=== PATIENT | female | born 1980 | race Caucasian/White ===

== ENCOUNTER → 2016-07-16 | Outpatient (CLI) | payer MEDICARE, OTHER ==
--- NOTE | 2016-07-17 06:47 | MM ---
Reason for exam: clinical finding. Last mammogram was performed 3 years and 1 month ago. History: Family history of breast cancer in mother at age 69. Taking hormonal contraceptives beginning at age 34. Physical Findings: Nurse did not find any significant physical abnormalities on exam. MG 3D Diag Mammo W/Cad ALEENA Bilateral CC and MLO view(s) were taken. XCCL view(s) were taken of the right breast. Prior study comparison: June 23, 2013, bilateral digital screening mammo w/CAD. The breast tissue is heterogeneously dense. This may lower the sensitivity of mammography. There is no discrete abnormality. These results were verbally communicated with the patient and result sheet given to the patient on 07/16/16. ASSESSMENT: Negative, BI-RAD 1 RECOMMENDATION: Routine screening mammogram of both breasts at age 38. Manage on a clinical basis with regard to rash and pain.
== END | disposition home or self-care (01) ==
LOC: RADMAMWWP 14:58
PROVIDERS: ATTEND Family Medicine
DX: N62 Hypertrophy of breast (principal)
CPT/HCPCS: G0204; G0279

== ENCOUNTER → 2017-02-01 | Outpatient (CLI) | payer MEDICARE ==
--- NOTE | 2017-02-01 13:07 | CT ---
EXAMINATION TYPE: CT abdomen wo con DATE OF EXAM: 02/01/2017 COMPARISON: Prior CT 10/03/2015 HISTORY: Patient complains of epigastric pain. CT DLP: 218.4 mGycm Automated exposure control for dose reduction was used. TECHNIQUE: Helical acquisition of images was performed from the lung bases through the top of iliac crest to include entire abdomen. CONTRAST: Performed without Oral Contrast and without IV contrast. FINDINGS: Lack of intravenous contrast could compromise sensitivity. LUNG BASES: No significant abnormality is appreciated. LIVER/GB: No significant abnormality is appreciated. Patient is post cholecystectomy. PANCREAS: No significant abnormality is seen. SPLEEN: No significant abnormality is seen. ADRENALS: No significant abnormality is seen. KIDNEYS: No significant abnormality is seen. BOWEL: No significant abnormality is seen. LYMPH NODES: No significant abnormality is appreciated. OSSEOUS STRUCTURES: No significant abnormality is seen. FREE AIR: No Free [place] visible ASCITES: None visible. RETROPERITONEAL ADENOPATHY: No Retroperitoneal Adenopathy visible. OTHER: Minimal atheromatous change within the aorta. IMPRESSION: POSTOP CHANGES. NONCONTRAST EXAM.
== END | disposition home or self-care (01) ==
LOC: RADCTMAIN 11:44
PROVIDERS: ATTEND Family Medicine
DX: R10.84 Generalized abdominal pain (principal)
CPT/HCPCS: 74150

== ENCOUNTER → 2017-10-14 | Outpatient (CLI) | payer MEDICARE ==
--- NOTE | 2017-10-14 13:39 | XR ---
EXAMINATION TYPE: XR cervical spine comp DATE OF EXAM: 10/14/2017 COMPARISON: CT scan 08/31/1951 HISTORY: Hip pain and neck pain TECHNIQUE: Four views are submitted. FINDINGS: The odontoid is intact. There are no compression deformities. The prevertebral soft tissue structur es are within normal limits. Loss of the normal cervical lordosis. There is posterior spondylosis at C5-6 and C6-C7 with degenerative disc disease at levels C5-T1. 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 Suspected f oraminal encroachment at C5-C6 on the right. IMPRESSION: 1. Multilevel degenerative disc disease and facet arthropathy..
--- NOTE | 2017-10-14 13:43 | XR ---
EXAMINATION TYPE: XR Hip Bilateral Complete DATE OF EXAM: 10/14/2017 COMPARISON: 12/19/2015 HISTORY: Pain TECHNIQUE: 2 views submitted FINDINGS: There is no evidence of erosive change or acute fracture. There is a calcification or ossification along the lateral margin the acetabulum likely related to ch ronic acetabular labral tear on the right or a tiny os acetabuli. Nonspherical morphology to the bilateral femoral head can be associated with femoral acetabular impin gement. Additionally is focal areas of sclerosis involving the diaphysis of the proximal femur likely on the basis of benign etiology and stable dating back to the previous exam. IMPRESSION: 1. 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 2. Correlate for femoral acetabular impingement bilaterally.
== END | disposition home or self-care (01) ==
LOC: RADXRMAIN 12:17
PROVIDERS: ATTEND Family Medicine
DX: M50.33 Other cervical disc degeneration, cervicothoracic region (principal); M46.92 Unspecified inflammatory spondylopathy, cervical region; M16.0 Bilateral primary osteoarthritis of hip
CPT/HCPCS: 72050; 73521

== ENCOUNTER → 2018-11-04 | Outpatient (CLI) | payer MEDICARE, OTHER ==
--- NOTE | 2018-11-05 18:41 | MR ---
EXAMINATION TYPE: MR knee LT wo con DATE OF EXAM: 11/04/2018 COMPARISON: 09/17/2015 HISTORY: Left knee pain TECHNIQUE: Multiplanar, multisequence imaging of the left knee is performed without IV contrast. FINDINGS: MEDIAL MENISCUS: Anterior and posterior horns medial meniscus appear intact. LATERAL MENISCUS: There is diffuse increased signal within the anterior horn lateral meniscus suggest concepcion for internal derangement. This is stable from the comparison. Posterior horn medial meniscus wanda ins intact. CRUCIATE LIGAMENTS: The anterior and posterior cruciate ligaments are intact and unremarkable. COLLATERAL LIGAMENTS: The medial collateral ligament and lateral collateral ligament complex are inta ct and unremarkable. EXTENSOR MECHANISM: Visualized quadriceps and patellar tendons are intact. EFFUSION: There is a small to moderate joint effusion present which is similar to comparison POPLITEAL CYST: No popliteal/hirsch cyst. TRICOMPARTMENT SPACES: Preserved CARTILAGE: Articular cartilage abnormality identified along the superior medial aspect of the tibial plateau was present previously. Articular cartilage appears intact. No suspicious underlying fracture s or dislocations are evident. BONE MARROW SIGNAL: No focal abnormal marrow signal is appreciated. OTHER: No additional significant abnormality is appreciated. IMPRESSION: Internal derangement appears stable within the anterior horn lateral meniscus. 2. Mild articular cartilage abnormality along the tibial plateau lateral compartment is stable from c omparison. 3. Small to moderate joint effusion stable in size from comparison. 4. No significant interval changes.
== END | disposition home or self-care (01) ==
LOC: RADMRIMAIN 11:26
PROVIDERS: ATTEND Orthopaedic Surgery
DX: M25.462 Effusion, left knee (principal)

== ENCOUNTER → 2018-11-17 | Outpatient (CLI) | payer MEDICARE, OTHER ==
[2018-11-17 13:31] LABS: Appearance,Urine Clear (Clear); Bilirubin,Urine Negative (Negative); Blood,Urine Moderate (Negative); Color,Urine Yellow; Glucose,Urine (UA) Negative (Negative); Ketones,Urine Negative (Negative); Leukocyte Esterase,Urine Negative (Negative); Mucus,Urine Moderate /hpf; Nitrite,Urine Negative (Negative); PH, Urine 5.5 (5.0-8.0); Protein,Urine Trace (Negative); RBC,Urine 1 /hpf (0-5); Specific Gravity,Urine 1.025 (1.001-1.035); Squamous Epithelial Cell,Urine 5 /hpf (0-4); Urobilinogen,Urine <2.0 mg/dL (<2.0); WBC,Urine 4 /hpf (0-5)
[2018-11-17 17:58] LABS: C Reactive Protein 0.9 mg/dL (0.0-0.8); Uric Acid 4.6 mg/dL (2.9-7.7)
[2018-11-17 18:05] LABS: Rheumatoid Factor <4 IU/mL (0-15)
[2018-11-17 19:11] LABS: Cyclic Citrull Pep IgG Unit 0.9 U/mL; Cyclic Citrullinated Pep IgG NEGATIVE (NEGATIVE); DNA Double-Stranded NEGATIVE (NEGATIVE)
[2018-11-18 14:27] LABS: APTT 45 Sec(s) (<43); APTT 1:1 Mix 39 Sec(s) (<43); DRVVT 1:1 Mix 42 Sec(s) (<44); Dilute Russell Viper Venom 52 Sec(s) (<44)
== END | disposition home or self-care (01) ==
LOC: LABWHC1 12:11
PROVIDERS: ATTEND Family Medicine
DX: N39.0 Urinary tract infection, site not specified (principal); Z79.899 Other long term (current) drug therapy
CPT/HCPCS: 36415; 81001; 84550; 85613; 85730; 86038; 86140; 86200; 86225; 86431; 87086

== ENCOUNTER → 2019-01-06 | Outpatient (CLI) | payer MEDICARE, OTHER ==
--- NOTE | 2019-01-06 17:50 | MR ---
EXAMINATION TYPE: MR angio head wo con DATE OF EXAM: 01/06/2019 COMPARISON: NONE HISTORY: Chronic headaches TECHNIQUE: Time of flight images focusing on the [place] were performed without contrast.. 2-D and 3-D postprocessing imaging is performed on independent workstation and reviewed. FINDINGS: Slightly larger or dominant left vertebral artery. Vertebral arteries are patent to basilar junction. There are patent bilateral posterior communicating arteries. There is no significant focal stenosis or aneurysmal change in the posterior circulation. Images of the anterior circulation show patent anterior communicating artery which continues as there are anterior cerebral artery, unusual variant. No aneurysmal change. No significant stenosis. IMPRESSION: No aneurysmal change at the level of the [place].
--- NOTE | 2019-01-06 17:52 | MR ---
EXAMINATION TYPE: MR brain wo con DATE OF EXAM: 01/06/2019 COMPARISON: Prior MRI brain December 01, 2012. HISTORY: Headaches TECHNIQUE: Multiplanar, multisequence imaging of the brain and brainstem is performed without IV cont rast. FINDINGS: Diffusion weighted images demonstrate no evidence of a recent infarct or other diffusion abnormality. There is no extraaxial fluid collection or significant white matter signal abnormality. The ventricu lar system and cisternal spaces are normal in size and appearance. The brain volume is age appropria te. Midline structures demonstrate normal morphology. The craniocervical junction appears within normal limits. Normal vascular flow voids are present. The visualized sinuses are clear and the globes are i ntact. Nasal septum remains deviated to left of midline. IMPRESSION: No suspicious new or acute findings are seen.
== END | disposition home or self-care (01) ==
LOC: RADMRIMAIN 09:35
PROVIDERS: ATTEND Family Medicine
DX: G44.89 Other headache syndrome (principal)
CPT/HCPCS: 70544; 70551

== ENCOUNTER → 2019-01-10 | Outpatient (CLI) | payer MEDICARE, OTHER ==
[2019-01-10 10:47] VITALS: BP 113/79; PULSE 66; RESP 16; TEMP 98.5; BMI 31.0
--- NOTE | 2019-01-10 12:04 | P.HPOB ---
History of Present Illness H&P Date: 01/10/19 Chief Complaint: The patient is here for her routine gynecologic exam and for Depo-Provera This is a 38-year-old with an LMP of approximately 2013. The patient is here to establish with this office. She believes her last Pap smear was 2 years ago. She has been on Depo-Provera since about 2013. She was put on this because of endometriosis and bad menstrual periods. Her last Depo-Provera injection was on 09/30/2018. She has brought in her Depo-Provera for injection. She states she is no longer interested in ever getting and would like to look into tubal sterilization. She has been experiencing some right pelvic discomfort that she describes as an achy feeling that resembles her symptoms from endometriosis. Review of Systems The patient's weight has been stable over the last year. She denies respiratory, cardiac, or G.I. problems. Past Medical History Past Medical History: Fibromyalgia, Rheumatoid Arthritis (RA) Additional Past Medical History / Comment(s): Degenerative disc disease. 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 History of Any Multi-Drug Resistant Organisms: None Reported Past Surgical History: Section, Cholecystectomy Additional Past Surgical History / Comment(s): Numerous laparoscopy is for dermoid ovarian cysts and endometriosis. Left shoulder surgery. Past Psychological History: Depression Smoking Status: Never smoker Past Alcohol Use History: None Reported Past Drug Use History: None Reported Additional History: She has been since 2004. She does not work outside the home. - Past Family History Mother Family Medical History: AFIB, Cancer, Diabetes Mellitus Additional Family Medical History / Comment(s): Breast cancer Father Family Medical History: Unable to Obtain Medications and Allergies Home Medications Medication Instructions Recorded Confirmed Type HYDROcodone/APAP 10-325MG [[place] 1 tab PO Q6H PRN 12/24/15 01/10/19 History 10-325] Medroxyprogesterone Acetate 150 mg IM Q90D 12/24/15 01/10/19 History [Depo-Provera] FLUoxetine HCL [PROzac] 40 mg PO DAILY 01/10/19 01/10/19 History Spironolactone [Aldactone] 100 mg PO DAILY 01/10/19 01/10/19 History Allergies Allergy/AdvReac Type Severity Reaction Status Date / Time No Known Allergies Allergy Verified 12/24/15 14:38 Exam Vital Signs Temp Pulse Resp BP Pulse Ox 01/10/19 10:39 98.5 F 66 16 113/79 100 Height 5'4", weight 181 pounds, BMI 31. This is a well-developed well-nourished white female who is alert and oriented times 3 in no acute distress. HEENT: Within normal limits. NECK: Supple without mass or thyromegaly. CHEST AND LUNGS: Clear to auscultation. HEART: Regular rate and rhythm. BREASTS: Are without mass or discharge. AXILLARY EXAM: Negative for adenopathy. BACK: Negative for CVA tenderness. ABDOMEN: Soft, nontender, without palpable masses. PELVIC EXAM: Normal external genitalia. Cervix and vagina appear normal. There is no unusual discharge. There is no cervical motion tenderness. There is no evidence of prolapse. The uterus is midposition, nongravid size and nontender. There are no palpable adnexal masses. There is mild right adnexal tenderness that she states resembles her discomfort that she has been experiencing. RECTAL EXAM: rectovaginal exam is negative for mass or tenderness and is negative for occult blood. EXTREMITIES: Nontender. Depo-Provera injection was given today. Medroxyprogesterone acetate 150 mg, serial number: [id number] [facility] [id number] expiration date 01/2020 injection was given to the left deltoid. IMPRESSION: 1. 38-year-old female who is on Depo-Provera for endometriosis and for control. 2. Right adnexal tenderness on exam today. 3. Right pelvic pain. 4. History of endometriosis and multiple dermoid ovarian cysts. 5. Undesired fertility. 6. Depo-Provera injection was given today. I have recommended that she use an alternate method of control for at least 2 weeks since it is technically late and was supposed to be given approximately 1-2 weeks ago. PLAN: 1. Pap smear was performed. 2. Self breast awareness was discussed with the patient. 3. Screening mammogram was recommended in the order slip was given to the patient. 4. I've recommended pelvic ultrasound and the order slip was given to the patient for this. 5. Information on sterilization by laparoscopy was given to the patient. We will obtain records from Dr. Chen's office regarding her endometriosis and dermoid cysts. We will consider referral for possible tubal sterilization and possible oophorectomy. 6. She will continue Depo-Provera injections every 3 months. She understands that I am recommending that she have a sterilization procedure or use alternate methods of control. We have discussed how Depo-Provera can weaken bones over time. 7. She was advised to return in one year for her annual well woman exam.
== END | disposition home or self-care (01) ==
LOC: WWCWWP 09:50
PROVIDERS: ATTEND Obstetrics & Gynecology
DX: Z53.9 Procedure and treatment not carried out, unspecified reason (principal)

== ENCOUNTER 2019-01-11 12:00 | Emergency (ER) | payer MEDICARE, OTHER ==
[2019-01-11 12:17] VITALS: RESP 18; TEMP 97.4
[2019-01-11] MEDS ORDERED: MORPHINE SULFATE 4 MG/ML SYRINGE IV STA (12:52)
[2019-01-11] MEDS ORDERED: ONDANSETRON 4 MG/2 ML VIAL IVP STA (12:52)
[2019-01-11] MEDS ORDERED: SODIUM CHLORIDE 0.9% 1,000 ML IV STA ×2 (12:52)
--- NOTE | 2019-01-11 13:24 | ED ---
Abdominal Pain HPI - General Chief Complaint: Abdominal Pain Stated Complaint: rt sided back pain Time Seen by Provider: 01/11/19 12:25 Source: patient, RN notes reviewed, old records reviewed Mode of arrival: ambulatory Limitations: no limitations - History of Present Illness Initial Comments: This Patient is a 38-year-old female, she presented to the emergency department today with chief complaint of one month of progressive right-sided flank and ab dominal pain, feeling like her ovaries going to burst. Patient states that she has been having this pain that she was diagnosed with urinary tract infection a few weeks ago. She states that she follow up with primary care doctor afterward complains of continued pain and she stated that her last urine sample is clear. Patient has had no reported dysuria at this time. She denies any fever or chi lls. Patient's reports that she does have a family history of breast and ovarian cancer. She denies any changes in stools. She does report some nausea. Last menstrual period was 6 years ago she does receive Depo-Medrol shot. 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 is reports that her pain has been more severe over the past 24-48 hours. Patient reports that pain is worse over going bumps in the car. MD Complaint: abdominal pain, flank pain Location: RLQ, R flank - Related Data Home Medications Medication Instructions Recorded Confirmed HYDROcodone/APAP 10-325MG [[place] 1 tab PO Q6H PRN 12/24/15 01/11/19 10-325] FLUoxetine HCL [PROzac] 40 mg PO DAILY 01/10/19 01/11/19 Spironolactone [Aldactone] 100 mg PO DAILY 01/10/19 01/11/19 Allergies Allergy/AdvReac Type Severity Reaction Status Date / Time No Known Allergies Allergy Verified 01/11/19 12:30 Review of Systems ROS Statement: Those systems with pertinent positive or pertinent negative responses have been documented in the HPI. ROS Other: All systems not noted in ROS Statement are negative. Past Medical History Past Medical History: Fibromyalgia, Rheumatoid Arthritis (RA) Additional Past Medical History / Comment(s): DDD History of Any Multi-Drug Resistant Organisms: None Reported Past Surgical History: Section, Orthopedic Surgery Past Psychological History: Depression Smoking Status: Never smoker Past Alcohol Use History: None Reported Past Drug Use History: None Reported General Exam - General Exam Comments Initial Comments: Pleasant 38-year-old female. Alert and oriented 3. Patient appears in moderate discomfort. Limitations: no limitations General appearance: alert, in no apparent distress Head exam: Present: atraumatic, normocephalic, normal inspection Eye exam: Present: normal appearance, PERRL, EOMI. Absent: scleral icterus, conjunctival injection, periorbital swelling ENT exam: Present: normal exam, mucous membranes moist Neck exam: Present: normal inspection. Absent: tenderness, meningismus, lymphadenopathy Respiratory exam: Present: normal lung sounds bilaterally. Absent: respiratory distress, wheezes, rales, rhonchi, stridor Cardiovascular Exam: Present: regular rate, normal rhythm, normal heart sounds. Absent: systolic murmur, diastolic murmur, rubs, gallop, clicks GI/Abdominal exam: Present: soft, tenderness (Right lower tenderness), normal bowel sounds. Absent: distended, guarding, rebound, rigid Back exam: Present: normal inspection Neurological exam: Present: alert, oriented X3, CN II-XII intact Psychiatric exam: Present: normal affect, normal mood Skin exam: Present: warm, dry, intact, normal color. Absent: rash Course Vital Signs 01/11/19 01/11/19 01/11/19 12:14 13:33 14:22 Temperature 97.4 F L Pulse Rate 84 88 78 Respiratory 18 18 18 Rate Blood Pressure 120/84 131/72 106/68 O2 Sat by Pulse 96 100 100 Oximetry 01/11/19 01/11/19 15:09 17:00 Temperature Pulse Rate 70 70 Respiratory 18 18 Rate Blood Pressure 111/80 118/70 O2 Sat by Pulse 100 100 Oximetry Medical Decision Making - Medical Decision Making 38 yo female with R lower abdominal pain. Labs were reveiwed and unremarkable. REcheck on patient she continues to have pain. CT abdomen and pelvis completed and negative. Patient advised unknown source for pain. Discussed prompt PCP follow up. Discussed treatment plan and will comply. - Lab Data Result diagrams: 01/11/19 13:30 01/11/19 13:30 Lab Results 01/11/19 01/11/19 01/11/19 Range/Units 13:25 13:30 13:30 WBC 10.3 (3.8-10.6) k/uL RBC 4.75 (3.80-5.40) m/uL Hgb 13.2 (11.4-16.0) gm/dL Hct 40.6 (34.0-46.0) % MCV 85.5 (80.0-100.0) fL MCH 27.7 (25.0-35.0) pg MCHC 32.4 (31.0-37.0) g/dL RDW 12.9 (11.5-15.5) % Plt Count 333 (150-450) k/uL Neutrophils % 65 % Lymphocytes % 26 % Monocytes % 6 % Eosinophils % 1 % Basophils % 1 % Neutrophils # 6.7 (1.3-7.7) k/uL Lymphocytes # 2.7 (1.0-4.8) k/uL Monocytes # 0.6 (0-1.0) k/uL Eosinophils # 0.1 (0-0.7) k/uL Basophils # 0.1 (0-0.2) k/uL PT (9.0-12.0) sec INR (<1.2) APTT (22.0-30.0) sec Sodium 140 (137-145) mmol/L Potassium 4.3 (3.5-5.1) mmol/L Chloride 106 (98-107) mmol/L Carbon Dioxide 23 (22-30) mmol/L Anion Gap 11 mmol/L BUN 16 (7-17) mg/dL Creatinine 0.94 (0.52-1.04) mg/dL Est GFR (CKD-EPI)AfAm 88 (>60 ml/min/1.73 sqM) Est GFR (CKD-EPI)NonAf 76 (>60 ml/min/1.73 sqM) Glucose 93 (74-99) mg/dL Calcium 9.5 (8.4-10.2) mg/dL Total Bilirubin 0.5 (0.2-1.3) mg/dL AST 33 (14-36) U/L ALT 40 (9-52) U/L Alkaline Phosphatase 64 (38-126) U/L Total Protein 7.3 (6.3-8.2) g/dL Albumin 4.3 (3.5-5.0) g/dL Amylase 63 (30-110) U/L Lipase 115 (23-300) U/L Urine Color Yellow Urine Appearance Cloudy H (Clear) Urine pH 5.5 (5.0-8.0) Ur Specific [place] 1.026 (1.001-1.035) Urine Protein Trace H (Negative) Urine Glucose (UA) Negative (Negative) Urine Ketones Trace H (Negative) Urine Blood Trace H (Negative) Urine Nitrite Negative (Negative) Urine Bilirubin Negative (Negative) Urine Urobilinogen <2.0 (<2.0) mg/dL Ur Leukocyte Esterase Negative (Negative) Urine RBC <1 (0-5) /hpf Urine WBC <1 (0-5) /hpf Ur Squamous Epith Cells 16 H (0-4) /hpf Hyaline Casts 5 H (0-2) /lpf Urine Mucus Many H (None) /hpf 01/11/19 Range/Units 13:30 WBC (3.8-10.6) k/uL RBC (3.80-5.40) m/uL Hgb (11.4-16.0) gm/dL Hct (34.0-46.0) % MCV (80.0-100.0) fL MCH (25.0-35.0) pg MCHC (31.0-37.0) g/dL RDW (11.5-15.5) % Plt Count (150-450) k/uL Neutrophils % % Lymphocytes % % Monocytes % % Eosinophils % % Basophils % % Neutrophils # (1.3-7.7) k/uL Lymphocytes # (1.0-4.8) k/uL Monocytes # (0-1.0) k/uL Eosinophils # (0-0.7) k/uL Basophils # (0-0.2) k/uL PT 9.5 (9.0-12.0) sec INR 0.9 (<1.2) APTT 24.5 (22.0-30.0) sec Sodium (137-145) mmol/L Potassium (3.5-5.1) mmol/L Chloride (98-107) mmol/L Carbon Dioxide (22-30) mmol/L Anion Gap mmol/L BUN (7-17) mg/dL Creatinine (0.52-1.04) mg/dL Est GFR (CKD-EPI)AfAm (>60 ml/min/1.73 sqM) Est GFR (CKD-EPI)NonAf (>60 ml/min/1.73 sqM) Glucose (74-99) mg/dL Calcium (8.4-10.2) mg/dL Total Bilirubin (0.2-1.3) mg/dL AST (14-36) U/L ALT (9-52) U/L Alkaline Phosphatase (38-126) U/L Total Protein (6.3-8.2) g/dL Albumin (3.5-5.0) g/dL Amylase (30-110) U/L Lipase (23-300) U/L Urine Color Urine Appearance (Clear) Urine pH (5.0-8.0) Ur Specific [place] (1.001-1.035) Urine Protein (Negative) Urine Glucose (UA) (Negative) Urine Ketones (Negative) Urine Blood (Negative) Urine Nitrite (Negative) Urine Bilirubin (Negative) Urine Urobilinogen (<2.0) mg/dL Ur Leukocyte Esterase (Negative) Urine RBC (0-5) /hpf Urine WBC (0-5) /hpf Ur Squamous Epith Cells (0-4) /hpf Hyaline Casts (0-2) /lpf Urine Mucus (None) /hpf 01/11/19 14:26 EKG shows normal sinus rhythm normal EKG. Ventricular rate of 63 bpm.. Intervals 148 ms. QRS duration is 76 most seconds. QT QTc is 426/435 ms. - Radiology Data Radiology results: report reviewed CT of his abdomen and pelvis is negative for any acute findings for patient's clinical symptoms. Disposition Clinical Impression: Right low back pain, Right sided abdominal pain Disposition: HOME SELF-CARE Condition: Stable Instructions (If sedation given, give patient instructions): Abdominal Pain (ED) Additional Instructions: Please use Motrin or Tylenol for pain as discussed. Please follow up with family doctor if symptoms have not improved over the next two days. Please r eturn to the emergency room if your symptoms increase or worsen or for any other concerns. Is patient prescribed a controlled substance at d/c from ED?: No Referrals: Benito Antonio MD [Primary Care Provider] - 1-2 days Time of Disposition: 16:44
[2019-01-11 13:55] LABS: Basophils # (A) 0.1 k/uL (0-0.2); Basophils % (A) 1 %; Eosinophils # (A) 0.1 k/uL (0-0.7); Eosinophils % (A) 1 %; HCT 40.6 % (34.0-46.0); HGB 13.2 gm/dL (11.4-16.0); Lymphocytes # (A) 2.7 k/uL (1.0-4.8); Lymphocytes % (A) 26 %; MCH 27.7 pg (25.0-35.0); MCHC 32.4 g/dL (31.0-37.0); MCV 85.5 fL (80.0-100.0); Mean Platelet Volume 6.5; Monocytes # (A) 0.6 k/uL (0-1.0); Monocytes % (A) 6 %; Neutrophils # (A) 6.7 k/uL (1.3-7.7); Neutrophils % (A) 65 %; Platelet Count 333 k/uL (150-450); RBC 4.75 m/uL (3.80-5.40); RDW 12.9 % (11.5-15.5); WBC 10.3 k/uL (3.8-10.6)
[2019-01-11 14:06] LABS: INR 0.9 (<1.2); Partial Thromboplastin Time 24.5 sec (22.0-30.0); Prothrombin Time 9.5 sec (9.0-12.0)
[2019-01-11 14:09] LABS: Appearance,Urine Cloudy (Clear); Bilirubin,Urine Negative (Negative); Blood,Urine Trace (Negative); Color,Urine Yellow; Glucose,Urine (UA) Negative (Negative); Hyaline Casts,Urine 5 /lpf (0-2); Ketones,Urine Trace (Negative); Leukocyte Esterase,Urine Negative (Negative); Mucus,Urine Many /hpf; Nitrite,Urine Negative (Negative); PH, Urine 5.5 (5.0-8.0); Protein,Urine Trace (Negative); RBC,Urine <1 /hpf (0-5); Specific Gravity,Urine 1.026 (1.001-1.035); Squamous Epithelial Cell,Urine 16 /hpf (0-4); Urobilinogen,Urine <2.0 mg/dL (<2.0); WBC,Urine <1 /hpf (0-5)
[2019-01-11 14:10] LABS: Albumin 4.3 g/dL (3.5-5.0); Calcium 9.5 mg/dL (8.4-10.2); Potassium 4.3 mmol/L (3.5-5.1); Total Bilirubin 0.5 mg/dL (0.2-1.3); Total Protein 7.3 g/dL (6.3-8.2)
--- NOTE | 2019-01-11 15:02 | XR ---
EXAMINATION TYPE: XR KUB DATE OF EXAM: 01/11/2019 COMPARISON: 11/30/2011 HISTORY: Abdomen pain lower groin pain TECHNIQUE: AP upright pelvis FINDINGS: Normal colonic bowel gas present. Psoas margins are normal. Cholecystectomy clips are prese nt. Organomegaly is not evident. No suspicious calcifications are evident IMPRESSION: 1. Nonspecific abdomen
[2019-01-11 15:24] VITALS: PULSE 70
--- NOTE | 2019-01-11 16:07 | CT ---
EXAMINATION TYPE: CT abdomen pelvis w con DATE OF EXAM: 01/11/2019 HISTORY: Low back pain, wraps around right side. Rule out pelvic mass. CT DLP: 1021.9mGycm Automated Exposure Control for Dose Reduction was Utilized. CONTRAST: CT scan of the abdomen and pelvis is performed with IV Contrast, patient injected with 100 mL of Isov ue 300. COMPARISON: CT abdomen and pelvis October 03, 2015. FINDINGS: LUNG BASES: There is right greater than left patchy bibasilar atelectasis and/or scarring. LIVER/GB: Cholecystectomy clips are redemonstrated. PANCREAS: No significant abnormality is seen. SPLEEN: No significant abnormality is seen. ADRENALS: No significant abnormality is seen. KIDNEYS: Stable subcentimeter simple appearing cyst anteriorly mid to lower pole level right kidney s eries 301 image 44. BOWEL: No suspicious small or large bowel dilatation. Evaluation of bowel suboptimal secondary to la ck of enteric contrast UTERUS/ADNEXA: Heterogeneous anteverted uterus. A 2.1 cm oval low dense lesion left ovary could refle ct prominent follicle or simple small ovarian cyst. Location of pelvic phlebolith. LYMPH NODES: No greater than 1cm abdominal or pelvic lymph nodes are appreciated. OSSEOUS STRUCTURES: No significant abnormality is seen. OTHER: No significant additional abnormality is seen. IMPRESSION: No significant new or acute finding is seen to account for patient's clinical symptoms.
[2019-01-11 17:01] VITALS: BP 118/70
== END 2019-01-11 17:00 | disposition home or self-care (01) ==
LOC: EC 12:00
DX: R10.31 Right lower quadrant pain (principal); M54.5 Low back pain; M79.7 Fibromyalgia; F32.9 Major depressive disorder, single episode, unspecified; Z79.899 Other long term (current) drug therapy
CPT/HCPCS: 36415; 93005; 80053; 82150; 83690; 85025; 85610; 85730; 81001; 74018; 74177; 99285; 96374; 96375; 96361 ×4; J2270; J2405; Q9967

== ENCOUNTER → 2019-02-22 | Outpatient (CLI) | payer MEDICARE, OTHER ==
--- NOTE | 2019-02-23 04:05 | US ---
EXAMINATION TYPE: US transvaginal DATE OF EXAM: 02/22/2019 COMPARISON: 01/11/2019 CLINICAL HISTORY: 38-year-old female R10.2 PELVIC PAIN,R68.89 ABN PELVIC EXAM. TECHNIQUE: Transvaginal sonographic images were medically necessary to better assess the uterus and ovaries as the bladder was not fully distended. 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 Date of LMP: 5 years ago FINDINGS: EXAM MEASUREMENTS: Uterus: 5.9 x 4.1 x 3.5 cm Endometrial Stripe: 4.8mm Right upper endometrium and 3.1mm Left upper endometrium Right Ovary: 2.5 x 1.5 x 1.5 cm Left Ovary: 3.0 x 1.5 x 2.1 cm 1. Uterus: Anteverted; small hypoechoic oval mass = 0.7 x 0.4 x 0.3cm (uterine fibroid) seen upper left myometrium. scar along the anterior lower uterine segment. 2. Endometrium: 2 fundal endometrial horns are suggested. 3. Right Ovary: multiple follicles with largest as simple follicle = 0.6 x 0.5 x 0.5cm. 4. Left Ovary: multiple small follicles with largest = 0.8 x 0.6 x 0.5cm Color flow is seen in bilateral ovary. 5. Bilateral Adnexa: wnl 6. Posterior cul-de-sac: wnl IMPRESSION: 1. 2 apparent endometrial horns. Findings could reflect arcuate versus septate uterus. Further MRI ev aluation if clinically indicated. The CT scan does not show a bicornuate configuration. 2. Endometrial stripe measuring up to 5 mm, normal. 3. Small follicles in both ovaries measuring up to 8 mm on the left and 6 mm on the right.
--- NOTE | 2019-03-01 10:03 | P.PN ---
Progress Note - Text Progress Note Date: 03/01/19 OUTPATIENT FOLLOW-UP NOTE TEST(S)/RESULTS: Pelvic ultrasound done on 02/22/2019 shows a small uterine fibroid measuring 0.7 cm there are also findings suggestive of possible arcuate or septate uterus. Ovaries are within normal limits. METHOD OF NOTIFICATION: She was notified by phone. PATIENT COMMENTS: The patient is no longer interested in and is requesting either tubal sterilization or more definitive surgery for her history of dysmenorrhea and endometriosis. She is wondering if hysterectomy and oophorectomy would be possible. DIAGNOSIS: Benign pelvic ultrasound findings with no adnexal abnormalities. Undesired fertility. History of dysmenorrhea and endometriosis. DISCUSSION: We will try to obtain records from Dr. Sen regarding her ovarian abnormalities and endometriosis. She will be referred for possible tubal sterilization or more definitive treatment with bilateral oophorectomy or possible hysterectomy with bilateral oophorectomy.
--- NOTE | 2019-03-22 09:40 | P.PN ---
Progress Note - Text Progress Note Date: 03/22/19 Records were requested from Dr. Sen's office regarding previous laparoscopies and possible endometriosis. The records obtained were for an encounter in 02-06 which did not mention anything about endometriosis. Under surgical history, a laparoscopy in [address] Dumont was documented. No other details were given. I have discussed this with the patient and she states she will contact the office to try to have additional records sent since she states Dr. Sen had done multiple surgeries for her pelvic pains and endometriosis. Once we obtain these records and we can consider referral for possible definitive treatment.
== END | disposition home or self-care (01) ==
LOC: RADUSWWP 15:37
PROVIDERS: ATTEND Obstetrics & Gynecology
DX: N83.8 Other noninflammatory disorders of ovary, fallopian tube and broad ligament (principal); R10.2 Pelvic and perineal pain; R68.89 Other general symptoms and signs; Z87.42 Personal history of other diseases of the female genital tract
CPT/HCPCS: 76830

== ENCOUNTER → 2019-03-02 | Outpatient (CLI) | payer MEDICARE, OTHER ==
--- NOTE | 2019-03-03 11:17 | MM ---
Reason for exam: screening (asymptomatic). Last mammogram was performed 2 years and 7 months ago. History: Family history of breast cancer in mother at age 69. Taking hormonal contraceptives beginning at age 34. Physical Findings: A clinical breast exam by your physician is recommended on an annual basis and results should be correlated with mammographic findings. MG 3D Screening Mammo W/Cad Bilateral CC and MLO view(s) were taken. Prior study comparison: July 16, 2016, bilateral MG 3d diag mammo w/cad [facility]. June 23, 2013, bilateral digital screening mammo w/CAD. The breast tissue is heterogeneously dense. This may lower the sensitivity of mammography. No suspicious abnormality. No significant changes when compared with prior studies. ASSESSMENT: Incomplete: need additional imaging evaluation, BI-RAD 0 RECOMMENDATION: Ultrasound of the left breast. (palpable) [facility] will attempt to contact patient to return for ultrasound.
== END | disposition home or self-care (01) ==
LOC: RADMAMWWP 11:13
PROVIDERS: ATTEND Obstetrics & Gynecology
DX: Z12.31 Encounter for screening mammogram for malignant neoplasm of breast (principal)
CPT/HCPCS: 77063; 77067

== ENCOUNTER → 2019-03-09 | Outpatient (CLI) | payer MEDICARE, OTHER ==
--- NOTE | 2019-03-09 10:58 | USB ---
Reason for exam: additional evaluation requested from abnormal screening. History: Family history of breast cancer in mother at age 69. Taking hormonal contraceptives beginning at age 34. Physical Findings: Nurse did not find any significant physical abnormalities on exam. US Breast Workup Limited LT Left limited breast ultrasound including focal area of concern, retroareolar and axilla demonstrates a 6 x 2 x 4cm oval, cystic lesion at 2 o'clock. No cystic or solid lesion seen at palpable. These results were verbally communicated with the patient and result sheet given to the patient on 03/09/19. ASSESSMENT: Benign, BI-RAD 2 RECOMMENDATION: Return to routine screening mammogram schedule for both breasts. Manage patient on a clinical basis.
== END ==
LOC: RADUSWWP 09:00
PROVIDERS: ATTEND Obstetrics & Gynecology
DX: R92.8 Other abnormal and inconclusive findings on diagnostic imaging of breast (principal)

== ENCOUNTER → 2019-04-11 | Outpatient (CLI) | payer MEDICARE, OTHER ==
[2019-04-11 11:51] VITALS: BP 116/82; PULSE 77; RESP 18; TEMP 98.1
--- NOTE | 2019-04-11 12:12 | P.PN ---
Progress Note - Text Progress Note Date: 04/11/19 The patient is here for her Depo-Provera injection. she is without complaints and has been amenorrheic since 2013 while on Depo-Provera. Her last injection was on 01/10/2019. She will continue to try to obtain records from Dr. Sen's office regarding previous laparoscopies. She states several of them were done at [facility]. Blood pressure: 116/82, height 5 feet 4 inches, weight 186 pounds, temperature 98.1, pulse 77, respiratory rate normal, pulse oximeter 99%. This is a well-developed White female who is alert and oriented times 3 in no acute distress. Medroxyprogesterone acetate injectable suspension 150 mg/mL lot number [id number] expiration: serial number: [id number] A 1 mL intramuscular injection was made into the right deltoid muscle. Impression: Depo-Provera injection administration Plan: She will return in 3 months for her next Depo-Provera injection.she will continue to try to obtain records from Dr. Sen's office regarding previous laparoscopies. She will sign a records release to obtain operative reports from laparoscopies done at [facility].
--- NOTE | 2019-04-25 13:54 | P.PN ---
Progress Note - Text Progress Note Date: 04/25/19 I have obtained records from multiple surgeries from the patient's past. A surgery was done on 08/01/[address] Dumont who did a diagnostic laparoscopy which showed some adhesions of the ascending colon and no other gross pathology. Another laparoscopy was done on 01/22/[address] Sen and this showed no significant pathology. Laparoscopy was also done on 06/10/[address] Sen and a right ovarian dermoid was removed. There was also note of 2 mm implants on the left pelvic sidewall that he felt was consistent with endometriosis. The patient has been on Depo-Provera for many months. She has had a history of right pelvic pain and tenderness on the right side. The patient would like a referral for possible laparoscopic tubal ligation, possible right oophorectomy or other indicated surgery. She is hoping for more definitive treatment of her right pelvic pain. The patient will be referred to [facility] for evaluation and possible surgery.
== END | disposition home or self-care (01) ==
LOC: WWCWWP 11:36
PROVIDERS: ATTEND Obstetrics & Gynecology
DX: Z53.9 Procedure and treatment not carried out, unspecified reason (principal)

== ENCOUNTER → 2019-07-11 | Outpatient (CLI) | payer MEDICARE, OTHER ==
[2019-07-11 10:49] VITALS: BP 112/77; PULSE 93; RESP 18; TEMP 98.4
--- NOTE | 2019-07-11 11:10 | P.PN ---
Progress Note - Text Progress Note Date: 07/11/19 The patient is here for her Depo-Provera injection. The patient is scheduled for a laparoscopically assisted hysterectomy with BSO on 08/08/[address] Arrington. This will be her last Depo-Provera injection. Blood pressure: 112/77, height 5 feet 5-1/2 inches, weight 186 pounds, temperature 98.4, pulse 93, pulse oximeter 97%. This is a well-developed white female who is alert and oriented times 3 in no acute distress. Medroxyprogesterone acetate injectable suspension 150 mg/mL lot number [id number] expiration: 2020-09 serial number: [id number] A 1 mL intramuscular injection was made into the Left deltoid muscle. Impression: Depo-Provera injection administration Plan: This will be her last Depo-Provera injection. Her hysterectomy with BSO is scheduled for 08/08/2019. She will return in January for her annual well woman examination.
== END ==
LOC: WWCWWP 10:37
PROVIDERS: ATTEND Obstetrics & Gynecology
DX: Z53.9 Procedure and treatment not carried out, unspecified reason (principal)

== ENCOUNTER → 2019-08-07 | Outpatient (CLI) | payer MEDICARE, OTHER ==
--- NOTE | 2019-08-07 11:17 | US ---
EXAMINATION TYPE: US venous doppler duplex LE RT DATE OF EXAM: 08/07/2019 10:49 AM COMPARISON: NONE CLINICAL HISTORY: M79.661 pain in rt lower limb. Cramp in right leg since beginning of this year- Apr. No redness. No swelling. SIDE PERFORMED: Right TECHNIQUE: The lower extremity deep venous system is examined utilizing real time linear array sonog darci with graded compression, doppler sonography and color-flow sonography. VESSELS IMAGED: External Iliac Vein (EIV) Common Femoral Vein Deep Femoral Vein Greater Saphenous Vein * Femoral Vein Popliteal Vein Small Saphenous Vein * Proximal Calf Veins (* superficial vessels) Right Leg: Negative for DVT IMPRESSION: No evidence for DVT at this time.
== END | disposition home or self-care (01) ==
LOC: RADUSWWP 10:33
PROVIDERS: ATTEND Family Medicine
DX: M79.661 Pain in right lower leg (principal)

== ENCOUNTER → 2019-09-01 | Outpatient (CLI) | payer MEDICARE, OTHER | END | disposition home or self-care (01) | LOC: LABWHC1 07:42 | PROVIDERS: ATTEND Surgery | DX: U07.1 COVID-19 (principal) | CPT/HCPCS: 87635 ==

== ENCOUNTER → 2019-09-04 | Day surgery (SDC) | payer MEDICARE, OTHER ==
[2019-09-01 10:18] VITALS: BMI 30.7
[~2019-09-04] MED LIST: DEXAMETHASONE SOD PHOSPHATE 10 MG/ML 1 ML VIAL IV ONE; LACTATED RINGERS 1,000 ML IV ONE; LACTATED RINGERS 1,000 ML IV SCH; LIDOCAINE 1% (10MG/ML) FOR IV START INTRADERMA PRN; ONDANSETRON 4 MG/2 ML VIAL IVP ONE; PROPOFOL 10 MG/ML 20 ML VIAL IV ONE
[2019-09-04 07:43] VITALS: TEMP 98
--- NOTE | 2019-09-04 09:03 | P.GSHP ---
History of Present Illness H&P Date: 09/04/19 Chief Complaint: GERD, GI bleed This a 39-year-old female been safe for EGD and colonoscopy. Patient's admission GERD GI bleed Past Medical History Past Medical History: Fibromyalgia, Rheumatoid Arthritis (RA) Additional Past Medical History / Comment(s): DDD. HAS BEEN BLEEDING RECTALLY FOR A FEW MONTHS PER PT History of Any Multi-Drug Resistant Organisms: None Reported Past Surgical History: Section, Orthopedic Surgery Additional Past Surgical History / Comment(s): BILAT KNEE SCOPES. LAPAROSCOPY FOR REMOVAL CYST OFF OVARY. LT SHOULDER SX WITH PIN Past Anesthesia/Blood Transfusion Reactions: No Reported Reaction Smoking Status: Never smoker - Past Family History Mother Family Medical History: Cancer Medications and Allergies Home Medications Medication Instructions Recorded Confirmed Type FLUoxetine HCL [PROzac] 40 mg PO DAILY 01/10/19 09/01/19 History Spironolactone [Aldactone] 100 mg PO DAILY 01/10/19 09/01/19 History medroxyPROGESTERone [Depo-Provera] 150 mg IM ONCE 04/11/19 09/01/19 History oxyCODONE-APAP 7.5-325MG [Percocet 1 tab PO Q4HR PRN 09/01/19 09/01/19 History 7.5-325 mg] Allergies Allergy/AdvReac Type Severity Reaction Status Date / Time No Known Allergies Allergy Verified 09/01/19 10:03 Surgical - Exam Vital Signs Temp Pulse Resp BP Pulse Ox 98 F 80 16 124/69 93 L 09/04/19 07:42 09/04/19 07:42 09/04/19 07:42 09/04/19 07:42 09/04/19 07:42 - General well developed, well nourished, no distress - Eyes PERRL - ENT normal pinna - Neck no masses - Respiratory normal expansion - Cardiovascular Rhythm: regular - Abdomen Abdomen: soft, non tender Assessment and Plan Assessment: GERD, GI bleed. We'll perform EGD and colonoscopy
--- NOTE | 2019-09-04 09:23 | P.OP ---
Date of Procedure: 09/04/19 Preoperative Diagnosis: GERD GI bleed Postoperative Diagnosis: Antral gastritis Small hiatal hernia Mild esophagitis Internal hemorrhoids Procedure(s) Performed: EGD Colonoscopy Anesthesia: MAC Surgeon: Jd Del Castillo Pathology: other (Antrum, esophagus) Condition: stable Disposition: PACU Description of Procedure: Patient's placed on the endoscopy table in the lateral position. She received IV sedation. The gastroscope was oropharynx passed in the esophagus into the stomach. Scope then placed through the pylorus. The first and second portion of the duodenum appeared normal. Scope was then brought back and the antrum this was mildly inflamed. A biopsies performed. Scope was unretroflexed and remainder of the stomach appeared normal. The GE junction was at 39 cm. There was a small hiatal hernia. The distal esophagus was minimal inflamed and a biopsies performed. The proximal esophagus appeared normal. Scope was withdrawn for patient. Next digital rectal exam was performed which revealed internal hemorrhoids. Scope was then placed patient anus passed throughout the entire colon. The ileocecal valve was excised. The cecum, ascending and transverse colon appeared normal. The descending and sigmoid colon appeared normal. Scope was then brought back the rectum and internal hemorrhage noted. Scope was withdrawn for patient. There is no evidence of GI bleed. Resume the patient bled from her internal hemorrhoids
[2019-09-04 09:40] VITALS: BP 128/78; PULSE 76; RESP 18
== END ==
LOC: ORWHC2ENDO 07:23
PROVIDERS: ATTEND Surgery
DX: K29.51 Unspecified chronic gastritis with bleeding (principal); K21.0 Gastro-esophageal reflux disease with esophagitis; K44.9 Diaphragmatic hernia without obstruction or gangrene; K64.8 Other hemorrhoids; M79.7 Fibromyalgia; M06.9 Rheumatoid arthritis, unspecified; F32.9 Major depressive disorder, single episode, unspecified; J30.9 Allergic rhinitis, unspecified; G89.4 Chronic pain syndrome; E78.5 Hyperlipidemia, unspecified; N80.9 Endometriosis, unspecified; R53.83 Other fatigue; S72.001A Fracture of unspecified part of neck of right femur, initial encounter for closed fracture; F41.1 Generalized anxiety disorder; G44.89 Other headache syndrome; I10 Essential (primary) hypertension; S86.101A Unspecified injury of other muscle(s) and tendon(s) of posterior muscle group at lower leg level, right leg, initial encounter; M50.30 Other cervical disc degeneration, unspecified cervical region; K58.9 Irritable bowel syndrome, unspecified; E66.9 Obesity, unspecified; M16.0 Bilateral primary osteoarthritis of hip; H66.90 Otitis media, unspecified, unspecified ear; E28.2 Polycystic ovarian syndrome; R73.03 Prediabetes; N02.9 Recurrent and persistent hematuria with unspecified morphologic changes; L82.1 Other seborrheic keratosis; J32.9 Chronic sinusitis, unspecified; R61 Generalized hyperhidrosis; M26.609 Unspecified temporomandibular joint disorder, unspecified side; N39.0 Urinary tract infection, site not specified; E55.9 Vitamin D deficiency, unspecified; M54.5 Low back pain; Z98.890 Other specified postprocedural states; Z85.9 Personal history of malignant neoplasm, unspecified; Z79.899 Other long term (current) drug therapy; Z79.3 Long term (current) use of hormonal contraceptives; Z79.891 Long term (current) use of opiate analgesic; Z91.89 Other specified personal risk factors, not elsewhere classified; Z86.19 Personal history of other infectious and parasitic diseases; Z68.30 Body mass index [BMI] 30.0-30.9, adult; X58.XXXA Exposure to other specified factors, initial encounter
CPT/HCPCS: 81025; 88305; 88342; 45378; 43239; J1100; J2405; J2704

== ENCOUNTER → 2019-10-03 | Outpatient (CLI) | payer MEDICARE, OTHER ==
[2019-10-03 13:06] LABS: Basophils % (A) 0 %; Eosinophils # (A) 0.1 k/uL (0-0.7); Eosinophils % (A) 1 %; HGB 13.7 gm/dL (11.4-16.0); Lymphocytes # (A) 2.9 k/uL (1.0-4.8); Lymphocytes % (A) 31 %; MCH 28.3 pg (25.0-35.0); MCHC 32.6 g/dL (31.0-37.0); MCV 87.1 fL (80.0-100.0); Mean Platelet Volume 6.8; Monocytes # (A) 0.5 k/uL (0-1.0); Monocytes % (A) 5 %; Neutrophils # (A) 5.6 k/uL (1.3-7.7); Neutrophils % (A) 61 %; Platelet Count 312 k/uL (150-450); RBC 4.83 m/uL (3.80-5.40); RDW 12.7 % (11.5-15.5); WBC 9.2 k/uL (3.8-10.6)
[2019-10-03 13:19] LABS: African American GFR (CKD) >90 (>60 ml/min/1.73 sqM); Anion Gap 9 mmol/L; Blood Urea Nitrogen 16 mg/dL (7-17); Carbon Dioxide 23 mmol/L (22-30); Chloride 106 mmol/L (98-107); Glucose 87 mg/dL (74-99); Non-African American GFR(CKD) 80 (>60 ml/min/1.73 sqM); Potassium 4.6 mmol/L (3.5-5.1); Sodium 138 mmol/L (137-145)
== END | disposition home or self-care (01) ==
LOC: LABPAT 11:47
PROVIDERS: ATTEND Obstetrics & Gynecology Obstetrics
DX: Z01.818 Encounter for other preprocedural examination (principal); R10.2 Pelvic and perineal pain
CPT/HCPCS: 36415; 80051; 82565; 82947; 84520; 85025; 86850; 86900; 86901; 87077; 87086; 87186

== ENCOUNTER 2019-10-10 06:34 | Day surgery (SDC) | payer MEDICARE, OTHER ==
[2019-10-06 14:00] VITALS: BMI 31.2
--- NOTE | 2019-10-09 15:27 | HP ---
HISTORY AND PHYSICAL DATE OF SURGERY: 10/10/2019 CHIEF COMPLAINT: Endometriosis, pelvic pain. HPI: This is a pleasant 39-year-old 1, para 0-1-0-1 that presents with complaints of pelvic pain. The patient had previously been diagnosed with endometriosis and evaluated by prior physician. She was treated with oral contraceptives, progesterone, diagnostic laparoscopy, and currently on Lupron. She states this treatment has been mildly effective. The patient denies any additional symptoms including constipation, diarrhea, dyschezia, dysuria, fever, or midcycle vaginal bleeding. She notes no aggravating or alleviating factors at this time. The patient states she has been on in the past and has noted increasing weight gain and decreasing libido. She is done with childbearing and would like definitive treatment with hysterectomy secondary to her endometrial symptoms. She would like ovarian conservation in addition. PAST MEDICAL HISTORY: 1. Significant for degenerative disk disease. 2. Dermoid cyst. 3. Depression. 4. Endometriosis. 5. Fibromyalgia. 6. Rheumatoid arthritis. PAST SURGICAL HISTORY: 1. . 2. Cholecystectomy. 3. Laparoscopy, numerous. 4. Shoulder surgery. MEDICATIONS: 1. She is on Aldactone. 2. Depo-Provera 150 mg IM. 3. Parrish 10/325. 4. Prozac 40 mg daily. No known drug allergies. FAMILY MEDICAL HISTORY: Noncontributory to this procedure. REPRODUCTIVE HISTORY: She is a 1, para 0-1-0-1 with 1 prior . Currently on Depo-Provera for contraception. SOCIAL HISTORY: She is a nonsmoker and denies substance abuse. REVIEW OF SYSTEMS: She denies body aches or night sweats. She denies headaches or sinus congestion. She denies any breast lumps, tenderness, swelling in his neck, nipple discharge. She denies chest pain or shortness of breath, she denies nausea, vomiting, diarrhea, dyschezia, or constipation. She admits to positive dysmenorrhea but denies urinary urgency, frequency, or dysuria. She denies muscular weakness. No new rashes are noted. She denies anxiety or depression. Vital signs are noted to be stable. PHYSICAL EXAM: In general, this is a well-nourished, well-developed, alert female in no acute distress, breathing is noted to be nonlabored, heart has a regular rate and rhythm. There is no appreciable lower extremity edema. On abdominal exam, her abdomen is nontender to palpation. Normal bowel sounds are appreciated. On genitourinary exam, external genitalia is noted to be normal for age. No discharge or tenderness is appreciated. Vagina is noted to have normal vaginal rugae, which is pink in nature. No discharge or inflammatory lesions are noted. The bladder is nontender to palpation. The cervix appears healthy and no lesions are noted. Uterus is nontender to palpation and is mid-plane with normal mobility. There are no adnexal masses. Mood appears normal and affect is appropriate. ASSESSMENT: Endometriosis. I did discuss with her prior treatment and current ultrasound of the pelvis which was normal. She desires definitive treatment with hysterectomy. Patient is given pamphlets on hysterectomy in general and all questions are answered. Risks are reviewed with the patient including, but not limited to infection, bleeding, damage to bladder, bowel, ureteric or other pelvic structures. Her prior history of is reviewed in addition given the risk of bladder injury secondary to this prior C- section. Multiple questions are answered and she states understanding of this. PLAN: Is robotic assisted vaginal hysterectomy with bilateral salpingo oophorectomy, diagnostic cystoscopy. The patient understands the need for hormonal therapy given her age and oophorectomy. We will review this postoperatively. MMODL / IJN: [id number] /
[~2019-10-10 06:34] MED LIST changes: -LACTATED RINGERS 1,000 ML IV ONE; -PROPOFOL 10 MG/ML 20 ML VIAL IV ONE; +SCOPOLAMINE 1.5MG/72HR PATCH TRANSDERM ONE
[2019-10-10] MEDS ORDERED: MIDAZOLAM 2 MG/2 ML VIAL IVP ONE (07:20)
[2019-10-10] MEDS ORDERED: MIDAZOLAM 2 MG/2 ML VIAL ONE (07:26)
[2019-10-10] MEDS ORDERED: ACETAMINOPHEN IV (For NPO) 1,000 MG/100 ML VIAL ONE (07:26)
[2019-10-10] MEDS ORDERED: GLYCOPYRROLATE 0.2 MG/ML 2 ML VIAL ONE (07:26)
[2019-10-10] MEDS ORDERED: HYDROmorphone (PF) 1 MG/ML ONE (07:26)
[2019-10-10] MEDS ORDERED: NEOSTIGMINE 1 MG/ML 10 ML VIAL ONE (07:26)
[2019-10-10] MEDS ORDERED: PROPOFOL 10 MG/ML 20 ML VIAL IV ONE (07:26)
[2019-10-10] MEDS ORDERED: fentaNYL (PF) 50 MCG/ML 2 ML AMP ONE (07:26)
[2019-10-10] MEDS ORDERED: ROCURONIUM BROMIDE 10 MG/ML 5 ML VIAL IV ONE (07:26)
[2019-10-10] MEDS ORDERED: SUCCINYLCHOLINE CHLORIDE 100 MG/5 ML SYR IV ONE (07:26)
[2019-10-10] MEDS ORDERED: LIDOCAINE 1% INJ 10MG/ML (20 ML MDV) ONE (07:26)
[2019-10-10] MEDS ORDERED: BUPIVACAINE (PF) 0.25% 30 ML VIAL SQ ONE ×2 (07:55)
[2019-10-10] MEDS ORDERED: LACTATED RINGERS 1,000 ML IV ONE (09:18)
[2019-10-10] MEDS: HYDROmorphone 0.5 MG/0.5 ML SYRINGE IVP PRN ×3 (09:36→09:56)
[2019-10-10] MEDS ORDERED: ONDANSETRON 4 MG/2 ML VIAL IVP ONE (09:37)
[2019-10-10] MEDS ORDERED: Acetaminophen-Codeine 300-30mg TAB PO PRN (09:44)
[2019-10-10] MEDS ORDERED: IBUPROFEN 600 MG TAB PO PRN (09:44)
[2019-10-10] MEDS ORDERED: ONDANSETRON 4 MG/2 ML VIAL IVP PRN (09:44)
--- NOTE | 2019-10-10 09:53 | P.OP ---
Date of Procedure: 10/10/19 Preoperative Diagnosis: Pelvic pain, endometriosis, failed medical treatment Postoperative Diagnosis: Same Procedure(s) Performed: Robotic cyst vaginal hysterotomy with bilateral salpingo-for ectomy, diagnostic cystoscopy Anesthesia: SYMONE Surgeon: Tatianna Arrington Database Marketing Manager #1: Veronica Ferrer Estimated Blood Loss (ml): 10 IV fluids (ml): 1,050 Urine output (ml): 250 Pathology: other (Uterus cervix bilateral fallopian tubes and ovaries.) Condition: stable Disposition: PACU Indications for Procedure: This 39-year-old 1 para 0101 presented to the office with multiple complaints of pelvic pain. Patient has done multiple medical modalities for treatment of her laparoscopically diagnosed endometriosis. Patient has done Lupron, Depo-Provera, OCPs and states she still is having discomfort. She is done with childbearing and wishes definitive treatment with robotic-assisted vaginal hysterotomy bilateral salpingo-for ectomy. Patient states understanding of bilateral oophorectomy and possible need for hormonal treatment given her age. Operative Findings: Small globular uterus is noted bilateral ovarian enlargement although grossly appears benign. Right ovary was adherent to the right pelvic sidewall. On cystoscopy normal bladder was appreciated complete survey was done both ureteral orifices spilling clear yellow urine. Description of Procedure: Patient was seen in the preoperative area surgery was reviewed and informed consent was obtained once again. Risks were reviewed including but not limited to infection, bleeding, damage to bladder, bowel, ureter or other pelvic structures. Given her prior history of we did discuss the risk of bladder injury and she stated understanding. Patient was taken back to the o perating suite where general anesthesia was obtained without difficulty by the anesthesia department. She was then prepped and draped in the normal sterile fashion in the dorsal lithotomy position. A Galeas catheter was placed under sterile technique. A weighted speculum was placed in the posterior vaginal vault, the anterior lip of the cervix was visualized and grasped with a single- tooth tenaculum. The endocervical canal was then dilated and a V care uterine and bladder was advanced into the uterus as a means to manipulate the uterus throughout the procedure. The balloon was filled with air and the cervical cap was placed snugly against the cervix at this point all instrument removed from the patient's vaginal vault. Attention was then turned the patient's abdomen where 1 finger breaths above the umbilicus a small skin incision is made. Through this incision the Veress needles placed. Once the Veress needle was deemed to be in the appropriate position with a drop of CO2 pressure CO2 insufflation was allowed to occur. 3 L of gas or used to obtain pneumoperitoneum. At this time the Veress needle was removed and the 8 mm da Nestor trocar was placed through the skin incision w ith the laparoscope in place. It was placed toward the pneumoperitoneum under direct visualization. The above-noted findings are visualized. At this time the additional port sites are placed 10 cm lateral and 3 cm inferior to midline port these are 8 mm ports operative ports and the da Nestor machine placed under direct visualization. In the left upper quadrant a 12 mm trocar and sleeve is placed under direct visualization. At this time the da Nestor is docked in the usual fashion. The operative arms are now placed. In the right operative arm the monopolar scissors is placed in the left operative arm the bipolar forceps is placed. Attention was then turned to the patient's left incidental pick pelvic ligament. A small amount of omental adhesions were noted therefore these were taken down sharply and hemostasis was appreciated. The bowel was noted to be far away from the operating field. The IP was then coagulated distally and proximally and divided. Hemostasis was appreciated throughout. This continued through the broad and toward the round which was coagulated distally and proximally divided. The bladder flap from the left was then created using sharp and blunt dissection. The ascending branch the uterine artery was visualized coagulated and transected. Hemostasis was appreciated. Attention then turned to the patient's right infundibulopelvic ligament which was visualized regular distally and proximally divided. This continued through the broad and toward the round which was coagulated distally and proximal main divided. Hemostasis was appreciated once again throughout. The bladder flap from the right was then created using sharp and blunt dissection. The ascending branch of the uterine artery from the right was then visualized coagulated and transected. Hemostasis was appreciated. At this time a Ray-Shant was placed into the abdomen as a means to dissect the bladder further away from the operating field once this was completed it was removed from the abdomen. At this time the only remaining attachment was a vaginal attachment therefore colpotomy incision was made in a circumferential fashion and the uterus fallopian tubes and ovaries were d elivered through the vaginal opening. The vaginal cuff was inspected hemostasis was appreciated. The vaginal cuff was then copiously irrigated. The vaginal cuff was then closed with 0 Vicryl in a [id number] fashion 4. Hemostasis was appreciated. At this point the right ureter was noted to be pulsating in a normal fashion and hemostasis was once again appreciated and the vaginal cuff. All instrument were then removed from the patient's abdomen. Attention was then turned to the patient's Galeas catheter which was removed without difficulty, the cystoscope was placed through the urethra and toward the bladder bladder bubble was noted both ureteral orifices were noted be spilling clear yellow urine. The bladder mucosa was intact and a complete survey of the bladder. The cystoscope was removed and the Galeas catheter was replaced. Attention then turned the patient's abdomen where the skin incisions were closed with 4-0 Vicryl in a subarticular fashion. Steri-Strips and sterile dressings were applied as needed. Next All counts were correct 2, patient tolerated procedure well was taken the recovery room awake in stable condition.
[2019-10-10] MEDS ORDERED: IBUPROFEN IV 800 MG in SODIUM CHLORIDE 0.9% 250 ML IV ONE (11:00)
[2019-10-10] MEDS: LACTATED RINGERS 1,000 ML IV SCH ×2 (11:30→20:45)
[2019-10-10] MEDS ORDERED: HYDROmorphone 0.5 MG/0.5 ML SYRINGE IVP ONE (12:22)
[2019-10-10] MEDS: Acetaminophen-Codeine 300-30mg TAB PO PRN ×2 (14:34→20:12)
[2019-10-11 06:17] LABS: Basophils % (A) 0 %; Eosinophils # (A) 0.1 k/uL (0-0.7); Eosinophils % (A) 1 %; HCT 39.1 % (34.0-46.0); Lymphocytes # (A) 2.2 k/uL (1.0-4.8); Lymphocytes % (A) 15 %; MCH 28.9 pg (25.0-35.0); MCHC 33.2 g/dL (31.0-37.0); MCV 86.9 fL (80.0-100.0); Mean Platelet Volume 7.4; Monocytes # (A) 0.7 k/uL (0-1.0); Monocytes % (A) 5 %; Neutrophils # (A) 11.7 k/uL (1.3-7.7); Neutrophils % (A) 79 %; Platelet Count 284 k/uL (150-450); RBC 4.49 m/uL (3.80-5.40); WBC 14.9 k/uL (3.8-10.6)
--- NOTE | 2019-10-11 08:54 | P.DS ---
Providers Date of admission: 10/10/2019 Expected date of discharge: 10/11/19 Attending physician: Tatianna Arrington Primary care physician: Benito Antonio - Discharge Diagnosis(es) (1) Pelvic pain Current Visit: Yes Status: Acute (2) Endometriosis determined by laparoscopy Current Visit: Yes Status: Acute (3) S/P laparoscopic hysterectomy Current Visit: Yes Status: Acute Hospital Course: This pleasant 39-year-old 1 para 0101 presented to the hospital for planned robotic cyst vaginal hysterectomy with bilateral salpingo-for ectomy, diagnostic cystoscopy. Patient has a known history of endometriosis and has been treated with multiple medical modalities. Patient states she has done with family planning and wishes definitive treatment secondary to endometriosis symptoms. For further details on this patient please see the dictated history and physical. Patient underwent robotic cyst vaginal hysterectomy with bilateral salpingo-oophorectomy and diagnostic cystoscopy. Surgery was completed without difficulty. For further details on the procedure please see the operative report. Patient's postoperative course has been uneventful. She is ambulating and voiding without difficulty. She is tolerating a regular diet without nausea or vomiting. She states her pain is well-controlled. She notes positive flatus and bowel movement. She does wish discharge home this morning. Patient Condition at Discharge: Good Plan - Discharge Summary Discharge Rx Participant: Yes New Discharge Prescriptions: No Action Spironolactone [Aldactone] 100 mg PO DAILY FLUoxetine HCL [PROzac] 40 mg PO DAILY oxyCODONE-APAP 7.5-325MG [Percocet 7.5-325 mg] 1 tab PO Q4HR PRN PRN Reason: Pain Omeprazole [PriLOSEC] 40 mg PO DAILY Discharge Medication List FLUoxetine HCL [PROzac] 40 mg PO DAILY 01/10/19 [History] Spironolactone [Aldactone] 100 mg PO DAILY 01/10/19 [History] oxyCODONE-APAP 7.5-325MG [Percocet 7.5-325 mg] 1 tab PO Q4HR PRN 09/01/19 [History] Omeprazole [PriLOSEC] 40 mg PO DAILY 10/06/19 [History] Follow up Appointment(s)/Referral(s): Tatianna Arrington DO [Doctor of Osteopathic Medicine] - 2 Weeks Patient Instructions/Handouts: Laparoscopic Hysterectomy (DC), Laparoscopic Hysterectomy (GEN) Activity/Diet/Wound Care/Special Instructions: No tub baths or intercourse until released by myself postoperatively. Patient may expect vaginal bleeding during her postoperative period. Discharge Disposition: HOME SELF-CARE
[2019-10-11 09:59] VITALS: BP 131/76; PULSE 91; RESP 16; TEMP 98.8
== END 2019-10-11 11:10 | disposition home or self-care (01) ==
LOC: OR 06:34 → 6PED 09:18 → OR 10-11 11:10
PROVIDERS: ATTEND Obstetrics & Gynecology Obstetrics
DX: N80.0 Endometriosis of uterus (principal); N93.9 Abnormal uterine and vaginal bleeding, unspecified; F32.9 Major depressive disorder, single episode, unspecified; M79.7 Fibromyalgia; D36.9 Benign neoplasm, unspecified site; I10 Essential (primary) hypertension; K21.9 Gastro-esophageal reflux disease without esophagitis; M06.9 Rheumatoid arthritis, unspecified; Z90.49 Acquired absence of other specified parts of digestive tract; Z98.890 Other specified postprocedural states; Z79.3 Long term (current) use of hormonal contraceptives; Z79.891 Long term (current) use of opiate analgesic; Z79.899 Other long term (current) drug therapy
CPT/HCPCS: 58552; 81025; 85025; 88307; J2250; J1100; J2710; J0690; J2405; J2001; J3010; J1170 ×2; J0131; J0330; J1741; J2704; 86850; 86900; 86901

== ENCOUNTER → 2019-11-29 | Outpatient (CLI) | payer MEDICARE, OTHER ==
--- NOTE | 2019-11-29 13:40 | XR ---
EXAMINATION TYPE: XR lumbar spine 2 or 3V DATE OF EXAM: 11/29/2019 COMPARISON: None HISTORY: Lumbar degenerative disc changes TECHNIQUE: Three-view lumbar spine FINDINGS: There 5 lumbar-type vertebral bodies. Pedicles are intact. Vertebral body heights are prese rved. There is disc space narrowing L3-4 posteriorly L4-5 and L5-S1. IMPRESSION: 1. Degenerative disc changes L3-4 through L5-S1 discussed above
== END | disposition home or self-care (01) ==
LOC: RADXRMAIN 12:31
PROVIDERS: ATTEND Family Medicine
DX: M51.37 Other intervertebral disc degeneration, lumbosacral region (principal)
CPT/HCPCS: 72100

== ENCOUNTER → 2020-01-08 | Outpatient (CLI) | payer MEDICARE, OTHER ==
--- NOTE | 2020-01-08 11:12 | XR ---
EXAMINATION TYPE: XR cervical spine comp DATE OF EXAM: 01/08/2020 TECHNIQUE: Frontal, lateral, oblique, and open mouth view of the cervical spine are obtained. HISTORY: Fusion M43.22 prior surgical study or fusion. COMPARISON: Prior cervical spine x-ray October 14, 2017. CT cervical spine August 31, 2014 FINDINGS: The cervical spine is visualized from C1 thru the bottom of C7 level, there is reversal of normal cervical curvature centered C4 level redemonstrated without evidence of acute fracture or dis location. The pre-vertebral soft tissue remains within normal limits. The C1-C2 articulation remain s within normal limits on the open mouth view. Near complete ossific fusion of the C2 and C3 vertebra remain present. Vertebral body heights and disc space heights are otherwise fairly well maintained. Stable slight grade 1 retrolisthesis C5 on C6. The oblique images show left-sided neural foraminal n arrowing C3-C4 level due to marginal spurring. This is new from prior studies. Overlying soft tissue is unremarkable. IMPRESSION: As above.
== END | disposition home or self-care (01) ==
LOC: RADXRMAIN 10:31
PROVIDERS: ATTEND Family Medicine
DX: M48.02 Spinal stenosis, cervical region (principal); M43.12 Spondylolisthesis, cervical region; M43.22 Fusion of spine, cervical region; M43.8X2 Other specified deforming dorsopathies, cervical region
CPT/HCPCS: 72050

== ENCOUNTER 2020-05-21 11:39 | Inpatient (IN) | payer MEDICARE, OTHER ==
[2020-05-21] MEDS: SODIUM CHLORIDE 0.9% 1,000 ML IV SCH (13:24)
[2020-05-21] MEDS: PANTOPRAZOLE 40 MG/10 ML VIAL IVP SCH (13:24)
[2020-05-21] MEDS: HYDROmorphone 0.5 MG/0.5 ML SYRINGE IVP PRN ×2 (13:24→17:09)
[2020-05-21 13:29] LABS: Basophils % (A) 0 %; Eosinophils # (A) 0.1 k/uL (0-0.7); Eosinophils % (A) 1 %; HCT 42.2 % (34.0-46.0); Lymphocytes # (A) 2.1 k/uL (1.0-4.8); Lymphocytes % (A) 18 %; MCH 27.9 pg (25.0-35.0); MCHC 33.1 g/dL (31.0-37.0); MCV 84.3 fL (80.0-100.0); Mean Platelet Volume 6.8; Monocytes # (A) 0.7 k/uL (0-1.0); Monocytes % (A) 6 %; Neutrophils # (A) 8.8 k/uL (1.3-7.7); Neutrophils % (A) 74 %; Platelet Count 289 k/uL (150-450); RBC 5.01 m/uL (3.80-5.40); RDW 12.6 % (11.5-15.5); WBC 11.8 k/uL (3.8-10.6)
[2020-05-21 13:39] LABS: ALT 39 U/L (4-34); AST 39 U/L (14-36); African American GFR (CKD) >90 (>60 ml/min/1.73 sqM); Albumin 4.3 g/dL (3.5-5.0); Alkaline Phosphatase 120 U/L (38-126); Anion Gap 8 mmol/L; Blood Urea Nitrogen 15 mg/dL (7-17); Calcium 9.7 mg/dL (8.4-10.2); Carbon Dioxide 27 mmol/L (22-30); Chloride 106 mmol/L (98-107); Glucose 89 mg/dL (74-99); Non-African American GFR(CKD) 82 (>60 ml/min/1.73 sqM); Sodium 141 mmol/L (137-145); Total Bilirubin 0.6 mg/dL (0.2-1.3); Total Protein 7.2 g/dL (6.3-8.2)
[2020-05-21] MEDS ORDERED: ERGOCALCIFEROL 1,250 MCG (50,000 IU) CAPSULE PO SCH (17:00)
[2020-05-21 17:11] LABS: Uric Acid 4.5 mg/dL (3.7-7.4)
--- NOTE | 2020-05-21 17:33 | XR ---
EXAMINATION TYPE: XR knee complete LT DATE OF EXAM: 05/21/2020 COMPARISON: NONE HISTORY: Knee pain and swelling TECHNIQUE: 3 views FINDINGS: There is some calcification of the menisci. I see no fracture nor dislocation. There is no sign of joint effusion. Joint spaces are fairly normal. IMPRESSION: Moderate meniscal calcification consistent with pseudogout. No fracture seen. No signific ant joint space narrowing.
[2020-05-21] MEDS: AMPICILLIN-SULBACTAM 1.5 GM in SODIUM CHLORIDE 0.9% 50 ML IVPB SCH (18:35)
[2020-05-21] MEDS: methylPREDNISolone SOD SUCCI 40 MG/ML 1 ML VIAL IV SCH (19:19)
[2020-05-21] MEDS: oxyCODONE-APAP 10-325MG 1 EACH TAB PO SCH (19:20)
--- NOTE | 2020-05-21 22:04 | P.CNOR ---
History of Present Illness - [facility] Consult date: 05/21/20 Consult reason: joint pain History of present illness: Patient is a pleasant 40-year-old female seen at bedside this evening in consultation for left knee pain. She states she developed left knee pain on 05/18/2020 without injury or trauma. She states the pain had progressed over the next few days as well as swelling. She presented to her PCP Dr. Antonio where in office today he performed an aspiration. Knee joint aspirate was sent for cultures and crystals and are pending results. She denies a history of gout. She's currently denying fever or chills, calf pain, chest pain or shortness of breath. She has pain at the left knee with minimal range of motion as well as states it's tender to touch. She has no other complaints. Review of Systems All systems: negative Constitutional: Denies chills, Denies fever Eyes: denies blurred vision, denies pain Ears, nose, mouth and throat: Denies headache, Denies sore throat Cardiovascular: Denies chest pain, Denies shortness of breath Respiratory: Denies cough Gastrointestinal: Denies abdominal pain, Denies diarrhea, Denies nausea, Denies vomiting Genitourinary: Denies dysuria, Denies hematuria Musculoskeletal: Denies myalgias Integumentary: Denies pruritus, Denies rash Neurological: Denies numbness, Denies weakness Psychiatric: Denies anxiety, Denies depression Endocrine: Denies fatigue, Denies weight change Past Medical History Past Medical History: Fibromyalgia, Rheumatoid Arthritis (RA) Additional Past Medical History / Comment(s): DDD History of Any Multi-Drug Resistant Organisms: None Reported Past Surgical History: Section, Hysterectomy, Orthopedic Surgery Additional Past Surgical History / Comment(s): BILAT KNEE SCOPES. LAPAROSCOPY FOR REMOVAL CYST OFF OVARY. LT SHOULDER SX WITH PIN Past Anesthesia/Blood Transfusion Reactions: No Reported Reaction Past Psychological History: Depression Smoking Status: Never smoker Past Alcohol Use History: None Reported Past Drug Use History: None Reported - Past Family History Mother Family Medical History: Cancer Medications and Allergies Home Medications Medication Instructions Recorded Confirmed Type FLUoxetine HCL [PROzac] 40 mg PO DAILY 01/10/19 05/21/20 History Omeprazole [PriLOSEC] 40 mg PO DAILY 10/06/19 05/21/20 History Ergocalciferol (Vitamin D2) 1,250 mcg PO Q7D 05/21/20 05/21/20 History [Vitamin D2 (50,000 Iu)] Furosemide [Lasix] 20 mg PO DAILY 05/21/20 05/21/20 History Phentermine HCl [Adipex-P] 37.5 mg PO DAILY 05/21/20 05/21/20 History oxyCODONE-APAP 10-325MG [Percocet 1 tab PO TID 05/21/20 05/21/20 History 10-325 mg] Allergies Allergy/AdvReac Type Severity Reaction Status Date / Time No Known Allergies Allergy Verified 05/21/20 13:10 Physical Examination Inspection of the left knee shows a moderate effusion. There is no deformity. There is no erythema. There are no wounds other than from an aspiration performed earlier today. The knee is tender to touch. It is not overly hot to touch. There is no focal abscess appreciated. The calf is soft and nontender. Neurovascular status is intact throughout the left lower extremity with motor and sensation. 2+ dorsalis pedis pulse and less than 2 second capillary refill is present. Negative Homans sign. She has pain at the left knee with minimal range of motion but appears ligamentously stable. Patella is normal tracking. Results X-rays of the knee are reviewed as well as report. There appears to be calcification of both medial and lateral meniscus. There are no fractures or lesions. There is degenerative changes. - Labs Labs: Abnormal Lab Results - Last 24 Hours (Table) 05/21/20 05/21/20 05/21/20 Range/Units 13:06 13:06 13:06 WBC 11.8 H (3.8-10.6) k/uL Neutrophils # 8.8 H (1.3-7.7) k/uL AST 39 H (14-36) U/L ALT 39 H (4-34) U/L C-Reactive Protein 26.0 H (<10.0) mg/L H & H 05/21/20 Range/Units 13:06 Hgb 14.0 (11.4-16.0) gm/dL Hct 42.2 (34.0-46.0) % Result Diagrams: 05/21/20 13:06 05/21/20 13:06 - Diagnostic results Knee x-ray: report reviewed, image reviewed Assessment and Plan (1) Left knee pain Narrative/Plan: Patient's left knee does not appear to be septic. She has a mildly elevated white count and mildly elevated CRP. She is afebrile. The joint is not hot or red. X-rays show possible gout versus pseudogout. Suspect this is an inflammatory process and recommend continued corticosteroids as well as prophylactic antibiotics. Also recommend ice, compression and elevation. We'll monitor closely and reevaluate tomorrow pending her clinical course and aspiration results, we'll make further recommendations. I will also review with Dr. Romano for his recommendations. Current Visit: Yes Status: Acute Priority: Medium Code(s): M25.562 - PAIN IN LEFT KNEE SNOMED Code(s): 38731634 (2) Effusion, left knee Current Visit: Yes Status: Acute Priority: Medium Code(s): M25.462 - EFFUSION, LEFT KNEE SNOMED Code(s): 334283426745919 Time with Patient: Less than 30
[2020-05-22] MEDS: SODIUM CHLORIDE 0.9% 1,000 ML IV SCH ×3 (00:01→20:11)
[2020-05-22] MEDS: methylPREDNISolone SOD SUCCI 40 MG/ML 1 ML VIAL IV SCH ×4 (01:25→23:30)
[2020-05-22] MEDS: AMPICILLIN-SULBACTAM 1.5 GM in SODIUM CHLORIDE 0.9% 50 ML IVPB SCH ×4 (01:26→23:31)
[2020-05-22] MEDS: oxyCODONE-APAP 10-325MG 1 EACH TAB PO SCH ×3 (04:51→23:30)
[2020-05-22 05:17] LABS: Basophils % (A) 0 %; Eosinophils % (A) 0 %; HCT 41.8 % (34.0-46.0); HGB 13.8 gm/dL (11.4-16.0); Lymphocytes # (A) 0.8 k/uL (1.0-4.8); Lymphocytes % (A) 7 %; MCH 28.3 pg (25.0-35.0); MCHC 32.9 g/dL (31.0-37.0); MCV 85.8 fL (80.0-100.0); Mean Platelet Volume 7.1; Monocytes # (A) 0.1 k/uL (0-1.0); Monocytes % (A) 1 %; Neutrophils % (A) 92 %; Platelet Count 283 k/uL (150-450); RBC 4.87 m/uL (3.80-5.40); RDW 12.7 % (11.5-15.5); WBC 10.9 k/uL (3.8-10.6)
[2020-05-22 05:33] LABS: ALT 43 U/L (4-34); AST 34 U/L (14-36); African American GFR (CKD) >90 (>60 ml/min/1.73 sqM); Albumin 3.9 g/dL (3.5-5.0); Alkaline Phosphatase 117 U/L (38-126); Anion Gap 4 mmol/L; Blood Urea Nitrogen 13 mg/dL (7-17); Calcium 9.8 mg/dL (8.4-10.2); Carbon Dioxide 27 mmol/L (22-30); Chloride 107 mmol/L (98-107); Glucose 154 mg/dL (74-99); Non-African American GFR(CKD) >90 (>60 ml/min/1.73 sqM); Potassium 4.4 mmol/L (3.5-5.1); Sodium 138 mmol/L (137-145); Total Bilirubin 0.7 mg/dL (0.2-1.3); Total Protein 6.8 g/dL (6.3-8.2)
[2020-05-22] MEDS: FUROSEMIDE 20 MG TAB PO SCH (08:46)
[2020-05-22] MEDS: PANTOPRAZOLE 40 MG/10 ML VIAL IVP SCH (08:46)
[2020-05-22] MEDS: FLUoxetine HCL 20 MG CAP PO SCH (08:47)
[2020-05-22] MEDS ORDERED: NON FORMULARY DRUG (Omeprazole 40 MG Capsule.Dr) PO SCH (09:00)
[2020-05-22] MEDS ORDERED: LIDOCAINE 1% INJ 10MG/ML (20 ML MDV) ONE (12:14)
--- NOTE | 2020-05-22 13:02 | P.PN ---
Subjective Progress Note Date: 05/22/20 Principal diagnosis: Left knee pain effusion Patient seen at bedside this afternoon. We are following for left knee pin and effusion. She feels improved some. She has been on IV corticosteroids, elevating, ice and compression. No new complaints. Denies fever, chills, calf pain. Objective - Vital Signs Vital signs: Vital Signs Temp 98.5 F 05/22/20 08:14 Pulse 80 05/22/20 08:14 Resp 24 05/22/20 08:14 BP 114/66 05/22/20 08:14 Pulse Ox 94 L 05/22/20 08:14 Intake & Output 05/21/20 05/22/20 05/22/20 18:59 06:59 18:59 Intake Total 240 Balance 240 Weight 83.554 kg Intake: Oral 240 Other: # Voids 3 5 1 # Bowel Movements 1 - Exam Improved effusion of left knee. Not red or hot. tender at the knee. Flexes to 90 degrees. Full extension. ligamentously stable. Calf SNT. NVI - Constitutional General appearance: Present: no acute distress - Labs CBC & Chem 7: 05/22/20 04:30 05/22/20 04:30 Labs: Abnormal Lab Results - Last 24 Hours (Table) 05/21/20 05/21/20 05/21/20 Range/Units 13:06 13:06 13:06 WBC 11.8 H (3.8-10.6) k/uL Neutrophils # 8.8 H (1.3-7.7) k/uL Lymphocytes # (1.0-4.8) k/uL Glucose (74-99) mg/dL AST 39 H (14-36) U/L ALT 39 H (4-34) U/L C-Reactive Protein 26.0 H (<10.0) mg/L 05/22/20 05/22/20 Range/Units 04:30 04:30 WBC 10.9 H (3.8-10.6) k/uL Neutrophils # 10.0 H (1.3-7.7) k/uL Lymphocytes # 0.8 L (1.0-4.8) k/uL Glucose 154 H (74-99) mg/dL AST (14-36) U/L ALT 43 H (4-34) U/L C-Reactive Protein (<10.0) mg/L Assessment and Plan (1) Left knee pain Narrative/Plan: Patient's left knee continues to appear to aseptic. She has improved some. Her white count has improved. She continues to be afebrile. The joint is not hot or red. An attempt to aspirate more synovial fluid was performed. Patient had difficulty tolerating procedure despite local anesthetic applied and injected. Procedure was performed using sterile technique. Approx 5 cc of fluid was obtained before patient requesting to stop. Fluid will be sent for C/S, crystals, gram stain. MRI of left knee ordered. Also ordered thigh high Angelo hose to wear on left leg. Continue ice and elevation with rest. She may d/c from ortho standpoint and f/u in office. Recommend medrol dose pack upon discharge. Patient was reviewed with Dr. Romano. Current Visit: Yes Status: Acute Priority: Medium Code(s): M25.562 - PAIN IN LEFT KNEE SNOMED Code(s): 05711999 (2) Effusion, left knee Current Visit: Yes Status: Acute Priority: Medium Code(s): M25.462 - EFFUSION, LEFT KNEE SNOMED Code(s): 941237949252887 Time with Patient: Less than 30
--- NOTE | 2020-05-22 15:10 | HP ---
HISTORY AND PHYSICAL This is a 40-year-old white female, with severe leg pain, cannot move her left knee, cannot bend it, unable to walk on it. Denies any trauma. She had a swollen hot knee, drained 40 mL of yellow cloudy fluid from it and admitted her as she is unable to bend her knee. Did not inject anything into the knee, just took the 40 mL of cloudy yellow fluid. I will start her on broad-spectrum antibiotics for possible septic knee. She denies history of gout. Waiting for orthopedics to see her. She is unable to move her knee and she is tender to the touch. REVIEW OF SYSTEMS: Fourteen-point review of systems positive for significant pain in the knee unable to bend or move it. Otherwise, she has chronic history of lower lumbar back pain, obesity, fibromyalgia, rheumatoid arthritis. Other fourteen-point review of systems negative. SURGICAL HISTORY: , hysterectomy, orthopedic surgery. She did have bilateral knee scopes, laparoscopic for cyst of the ovary, left shoulder symptoms. She has history anxiety and depression. HOME MEDICINES: 1. Percocet 10/325 t.i.d. 2. Lasix 20 mg daily. 3. Vitamin D 1250 mcg p.o. every 7 days. 4. Prilosec 40 mg daily. 5. Prozac 40 mg daily. ALLERGIES: Negative. PHYSICAL EXAMINATION: PSYCH: She is crying, in severe pain, 10/10 pain. Psych anxious, nervous. CARDIOVASCULAR: S1, S2. LUNGS: Fairly clear. Left knee still has moderate amount of effusion. I am hoping Orthopedic can drain it. She is tender. It is hot to the touch. No evidence of the knee. Neurovascular is intact to the legs. She has 2+ edema bilaterally. She has capillary refills in bilateral legs. X-ray shows calcification of the medial and lateral meniscus. White count 11.8, neutrophils 8.8. AST and ALT are high at 39. C-reactive protein high at 26. ASSESSMENT: Acute left knee pain, possible septic knee. I am going to admit her and start her on antibiotics until orthopedic clears her. Hopefully, they will drain the knee some more. Continue with antibiotics, pain control. Await further recommendations. Continue home medicines for rheumatoid arthritis, fibromyalgia. MMODL / IJN: [id number] /
--- NOTE | 2020-05-22 19:24 | MR ---
EXAMINATION TYPE: MR knee LT wo con DATE OF EXAM: 05/22/2020 COMPARISON: None HISTORY: LT knee effusion and pain Multiplanar multiecho imaging of the left knee was performed with no contrast. There is a large knee joint effusion. There is moderate subcutaneous edema anterior to the patella. The anterior and posterior cruciate ligaments appear intact. There is patchy increased signal throughout the anterior horn of the lateral meniscus. The posterior horn lateral meniscus is intact. There is slight increased signal in the free margin of the posterior horn of the medial meniscus. The collateral ligaments are intact. The patella is intact. There is no evidence of a fracture. IMPRESSION: Large joint effusion. Complex horizontal and vertical tear of the anterior horn of the lateral menisc us. Small vertical tear through the free margin of the posterior horn of the medial meniscus. There is so me degenerative thinning of the medial meniscus. No fracture seen. No evidence of ligamentous tear.
[2020-05-23] MEDS: SODIUM CHLORIDE 0.9% 1,000 ML IV SCH ×2 (01:41→08:43)
[2020-05-23] MEDS: FLUoxetine HCL 20 MG CAP PO SCH (08:25)
[2020-05-23] MEDS: FUROSEMIDE 20 MG TAB PO SCH (08:25)
[2020-05-23] MEDS: oxyCODONE-APAP 10-325MG 1 EACH TAB PO SCH ×2 (08:26→16:07)
[2020-05-23] MEDS: PANTOPRAZOLE 40 MG/10 ML VIAL IVP SCH (08:27)
[2020-05-23] MEDS: methylPREDNISolone SOD SUCCI 40 MG/ML 1 ML VIAL IV SCH ×2 (08:27→16:07)
[2020-05-23] MEDS: AMPICILLIN-SULBACTAM 1.5 GM in SODIUM CHLORIDE 0.9% 50 ML IVPB SCH ×2 (08:29→16:07)
--- NOTE | 2020-05-23 09:23 | P.PN ---
Subjective Progress Note Date: 05/23/20 Principal diagnosis: Left knee meniscus tear, pain effusion MRI of left knee reviewed with Dr. Romano this morning. Objective - Vital Signs Vital signs: Vital Signs Temp 98.2 F 05/23/20 08:15 Pulse 85 05/23/20 08:15 Resp 20 05/23/20 08:15 BP 116/77 05/23/20 08:15 Pulse Ox 96 05/23/20 08:15 Intake & Output 05/22/20 05/23/20 05/23/20 18:59 06:59 18:59 Other: # Voids 1 1 - Constitutional General appearance: Present: no acute distress - Labs CBC & Chem 7: 05/22/20 04:30 05/22/20 04:30 Labs: Abnormal Lab Results - Last 24 Hours (Table) 05/22/20 05/22/20 05/22/20 Range/Units 12:26 12:26 12:26 ESR 29 H (0-20) mm/hr Plasma Lactic Acid Leroy 3.3 H* (0.7-2.0) mmol/L C-Reactive Protein 73.5 H (<10.0) mg/L Microbiology - Last 24 Hours (Table) 05/22/20 13:00 Body Fluid Culture - Preliminary Synovial Fluid 05/22/20 12:50 Anaerobic Culture - Preliminary Synovial Fluid 05/22/20 12:50 Fungal Culture - Preliminary Synovial Fluid - Imaging and Cardiology MRI of left knee shows meniscus tears with joint effusion, no ligament tears and no sign of infection Assessment and Plan (1) Left knee pain Narrative/Plan: MRI of left knee shows complex meniscus tear. She remains afebrile and improved WBC, lactic acid and labs. She may follow up as outpatient to discuss knee arthroscopy. Continue crutches or walker, ice, elevation, rest and oral corticosteroids or NSAIDs . Current Visit: Yes Status: Acute Priority: Medium Code(s): M25.562 - PAIN IN LEFT KNEE SNOMED Code(s): 01626020 (2) Effusion, left knee Current Visit: Yes Status: Acute Priority: Medium Code(s): M25.462 - EFFUSION, LEFT KNEE SNOMED Code(s): 832786564698161 (3) Tear of meniscus of knee Current Visit: Yes Status: Acute Code(s): S83.209A - UNSP TEAR OF UNSP MENISCUS, CURRENT INJURY, UNSP KNEE, INIT SNOMED Code(s): 261936078 Time with Patient: Less than 30
[2020-05-23 14:45] VITALS: BP 124/76; PULSE 76; RESP 18; TEMP 98.1
== END 2020-05-23 19:00 | disposition home or self-care (01) | DRG 563 ==
LOC: 6PED 11:53
PROVIDERS: ADMIT Family Medicine; ATTEND Family Medicine
PROC: 0S9D3ZZ Drainage of Left Knee Joint, Percutaneous Approach (ICD-10-PCS; principal; 2020-05-22)
DX: S83.242A Other tear of medial meniscus, current injury, left knee, initial encounter (principal); M06.9 Rheumatoid arthritis, unspecified; M25.462 Effusion, left knee; M79.7 Fibromyalgia; E66.9 Obesity, unspecified; F32.9 Major depressive disorder, single episode, unspecified; F41.9 Anxiety disorder, unspecified; M51.36 Other intervertebral disc degeneration, lumbar region; X58.XXXA Exposure to other specified factors, initial encounter; Z68.31 Body mass index [BMI] 31.0-31.9, adult; Z79.899 Other long term (current) drug therapy; Z90.710 Acquired absence of both cervix and uterus; Z98.890 Other specified postprocedural states; Z80.9 Family history of malignant neoplasm, unspecified
CPT/HCPCS: 80053; 83605; 84550; 85025; 85652; 86140; 87070; 87075; 87102; 87205; 89060

== ENCOUNTER → 2020-06-05 | Outpatient (CLI) | payer MEDICARE, OTHER ==
[2020-06-05 12:32] LABS: Basophils % (A) 0 %; Eosinophils # (A) 0.1 k/uL (0-0.7); Eosinophils % (A) 1 %; HCT 41.9 % (34.0-46.0); HGB 13.8 gm/dL (11.4-16.0); Lymphocytes # (A) 2.7 k/uL (1.0-4.8); Lymphocytes % (A) 26 %; MCHC 32.9 g/dL (31.0-37.0); Mean Platelet Volume 6.8; Monocytes # (A) 0.7 k/uL (0-1.0); Monocytes % (A) 7 %; Neutrophils % (A) 66 %; Platelet Count 319 k/uL (150-450); RBC 4.93 m/uL (3.80-5.40); RDW 12.9 % (11.5-15.5); WBC 10.6 k/uL (3.8-10.6)
[2020-06-05 12:34] LABS: Potassium 4.9 mmol/L (3.5-5.1)
== END | disposition home or self-care (01) ==
LOC: LABPAT 10:46
PROVIDERS: ATTEND Orthopaedic Surgery
DX: Z01.818 Encounter for other preprocedural examination (principal); M23.90 Unspecified internal derangement of unspecified knee
CPT/HCPCS: 80051; 85025

== ENCOUNTER → 2020-06-21 | Day surgery (SDC) | payer MEDICARE, OTHER ==
[2020-06-17 14:38] VITALS: BMI 31.2
--- NOTE | 2020-06-20 13:42 | HP ---
HISTORY AND PHYSICAL CHIEF COMPLAINT: Left knee pain. 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 She notes anterior and posterior pain along with buckling and giving out. She notes she has been limping. She rates her pain 8/10. She previously has had a left knee arthroscopy in addition has had injections in that knee. PAST MEDICAL HISTORY: Significant for rheumatoid arthritis, depression, and fibromyalgia. PAST SURGICAL HISTORY: Significant for left knee arthroscopy. CURRENT MEDICATIONS: 1. [place]. 2. Prozac. 3. Vitamin D3. ALLERGIES: She denies drug allergies. FAMILY HISTORY: Significant for cancer. SOCIAL HISTORY: Negative for current tobacco or alcohol use. REVIEW OF SYSTEMS: Sixteen-point review of systems otherwise is reviewed and is noncontributory. PHYSICAL EXAMINATION: On examination, the patient is approximately 5 feet 4 inches, 184 pounds of endomorphic habitus. HEENT exam is nonfocal. Neck is supple. She has painless passive motion of her left hip. Straight leg raise is negative. Active motion left knee -14 to 110 degrees of flexion. She has a moderate effusion. There is no warmth or erythema. She is tender about the lateral greater than medial joint line. Collaterals are stable, Melisa is negative, Yoana's elicits medial pain. Her distal neurovascular exam appears intact in the left lower extremity. X-rays of the left knee obtained in the office show mild tricompartment narrowing in addition to chondrocalcinosis at the medial and lateral menisci. MRI report left knee shows a posterior medial meniscal tear. IMPRESSION: 1. Left knee internal derangement/symptomatic medial meniscal tear. 2. Left knee chondrocalcinosis/synovitis. RECOMMENDATIONS: I talked to the patient at length regarding her condition and treatment options. At this point, she remains quite symptomatic despite conservative measures. After thorough discussion, she opts to proceed with surgery. We will plan to proceed with arthroscopic evaluation with probable partial medial meniscectomy in addition to possible synovectomy. We will likely perform that as an outpatient procedure. Risks and benefits were discussed at length in layman's terms. MMODL / IJN: [id number] /
[~2020-06-21] MED LIST changes: -DEXAMETHASONE SOD PHOSPHATE 10 MG/ML 1 ML VIAL IV ONE; +DEXAMETHASONE SOD PHOSPHATE 4 MG/ML 1 ML VIAL IV ONE; +EPINEPHrine (PF) 1 ML in SODIUM CHLORIDE 0.9% IRRIGATIO 3,000 ML IRRIGATION ONE; +FAMOTIDINE 20 MG/2 ML VIAL IV ONE; +HYDROmorphone 0.5 MG/0.5 ML SYRINGE IVP ONE; +HYDROmorphone 0.5 MG/0.5 ML SYRINGE IVP PRN; +KETOROLAC 15 MG/ML 1 ML VIAL ONE; +LIDOCAINE 1% (10MG/ML) FOR IV START INTRADERMA ONE; -LIDOCAINE 1% (10MG/ML) FOR IV START INTRADERMA PRN; +LIDOCAINE 1% INJ 10MG/ML (20 ML MDV) ONE; +MIDAZOLAM 2 MG/2 ML VIAL ONE; +PROPOFOL 10 MG/ML 20 ML VIAL IV ONE; -SCOPOLAMINE 1.5MG/72HR PATCH TRANSDERM ONE; +fentaNYL (PF) 50 MCG/ML 2 ML AMP ONE
[2020-06-21 09:20] LABS: Glucose,Whole Blood 103 mg/dL (75-99)
--- NOTE | 2020-06-21 10:19 | P.OP ---
Date of Procedure: 06/21/20 Preoperative Diagnosis: Right knee internal derangement Postoperative Diagnosis: Right knee posterior medial meniscal tear/posterior lateral meniscal tear/pseudogout/synovitis Procedure(s) Performed: Right knee arthroscopic partial medial meniscectomy/partial lateral meniscectomy/partial synovectomy of the medial, lateral, and patellofemoral compartments. Anesthesia: RAISAA Surgeon: Preston Short Estimated Blood Loss (ml): 10 Pathology: none sent Condition: stable Disposition: PACU Indications for Procedure: The patient's a 40-year-old female presents with progressive right knee pain and mechanical symptoms despite previous conservative measures. A discussion of the risks and benefits of operative intervention versus continued conservative measures was made with the patient. She opted to proceed with surgery. Operative risks to include infection, neurovascular injury, development blood clots, possible incomplete resolution of symptoms, possible worsening symptoms and need for subsequent procedures was discussed. Informed consent was obtained. Operative Findings: As below Description of Procedure: The patient was brought to the operating room, and after induction of general anesthesia examined the right knee. Collaterals were stable, Melisa was negative, and posterior drawer was negative. The right lower extremity was prepped and draped in a normal fashion. A superior lateral portal was made th rough a 3 mm skin incision superior and lateral to the patella. This was used for outflow. A lateral portal was made through a 5 mm vertical skin incision lateral to the patella tendon above the joint line. Diagnostic arthroscopy was performed. On inspection of the medial compartment, there was significant synovitis along with a complex oblique tear involving the posterior horn medial meniscus in the white-red junction. The meniscal tear was debrided back to stable base with straight baskets and a motorized shaver. Chondrocalcinosis of the meniscus was noted as well. The synovitis was debrided with a motorized shaver. Grade 3 chondral changes were noted involving the central distal portion of the medial femoral condyle . On inspection of the notch, the anterior cruciate ligament appeared to be intact. On inspection of the lateral compartment, a radial tear involving the posterior and middle one third junction was noted in the white-white junction. This was debrided back to stable base with a motorized shaver. Again marked synovitis was debrided with motorized shaver. On inspection of the patellofemoral articulation, there was chondral fibrillation and some degenerative changes however no loose chondral fragments. Marked synovitis was debrided with a motorized shaver. The gutters were clear debris. The knee was then thoroughly irrigated. The portals were closed with Steri-Strips. A sterile dressing was applied in addition to a compression stocking. The patient was awoken from general anesthesia and transferred to recovery room in good condition. Blood loss was estimated at 10 mL. No complications were incurred.
[2020-06-21 10:23] VITALS: RESP 16; TEMP 97.2
[2020-06-21 11:27] VITALS: BP 104/69; PULSE 77
== END | disposition home or self-care (01) ==
LOC: OR 08:28
PROVIDERS: ATTEND Orthopaedic Surgery
DX: M23.203 Derangement of unspecified medial meniscus due to old tear or injury, right knee (principal); M23.200 Derangement of unspecified lateral meniscus due to old tear or injury, right knee; M65.861 Other synovitis and tenosynovitis, right lower leg; M11.261 Other chondrocalcinosis, right knee; M06.9 Rheumatoid arthritis, unspecified; F32.9 Major depressive disorder, single episode, unspecified; M79.7 Fibromyalgia; Z98.890 Other specified postprocedural states; Z90.710 Acquired absence of both cervix and uterus; Z79.891 Long term (current) use of opiate analgesic; Z79.899 Other long term (current) drug therapy; Z80.9 Family history of malignant neoplasm, unspecified; K21.9 Gastro-esophageal reflux disease without esophagitis
CPT/HCPCS: 29880; J2250; J1100; J0690; J2405; J0171; J2001; J3010; J1885; J2704; J1170

== ENCOUNTER → 2020-11-18 | Outpatient (CLI) | payer MEDICARE, OTHER ==
--- NOTE | 2020-11-18 18:43 | XR ---
EXAMINATION TYPE: XR wrist complete RT DATE OF EXAM: 11/18/2020 COMPARISON: NONE HISTORY: 45-year-old female right wrist pain TECHNIQUE: 4 views FINDINGS: The radiocarpal and distal radioulnar joint as well as the midcarpal compartment appear intact. No ac cliff fracture, subluxation, or dislocation seen. IMPRESSION: No acute osseous abnormality seen.
== END | disposition home or self-care (01) ==
LOC: RADXRMAIN 10:35
PROVIDERS: ATTEND Family Medicine
DX: M25.531 Pain in right wrist (principal)

== ENCOUNTER → 2020-11-18 | Outpatient (CLI) | payer MEDICARE, OTHER ==
--- NOTE | 2020-11-21 11:09 | MM ---
Reason for exam: screening (asymptomatic). Last mammogram was performed 1 year and 9 months ago. History: Patient is postmenopausal. Family history of breast cancer in mother at age 69. Taking hormonal contraceptives beginning at age 34. Physical Findings: A clinical breast exam by your physician is recommended on an annual basis and results should be correlated with mammographic findings. MG 3D Screening Mammo W/Cad Bilateral CC and MLO view(s) were taken. Prior study comparison: March 02, 2019, bilateral MG 3d screening mammo w/cad. July 16, 2016, bilateral MG 3d diag mammo w/cad [facility]. The breast tissue is heterogeneously dense. This may lower the sensitivity of mammography. No significant changes when compared with prior studies. ASSESSMENT: Negative, BI-RAD 1 RECOMMENDATION: Routine screening mammogram of both breasts in 1 year.
== END | disposition home or self-care (01) ==
LOC: RADMAMWWP 10:07
PROVIDERS: ATTEND Family Medicine
DX: Z12.31 Encounter for screening mammogram for malignant neoplasm of breast (principal); Z78.0 Asymptomatic menopausal state; Z80.3 Family history of malignant neoplasm of breast
CPT/HCPCS: 77063; 77067

== ENCOUNTER → 2021-12-02 | Outpatient (CLI) | payer MEDICARE, OTHER ==
--- NOTE | 2021-12-03 17:46 | MM ---
Reason for Exam: Screening (asymptomatic). Last mammogram was performed 1 year(s) and 1 month(s) ago. Indicated Problems: Other indicated problem of the left side for 2 Year(s). Patient History: Menarche at age 9. First Full-Term at age 23. Left ovary removed at age 38. Right ovary removed at age 38. Hysterectomy at age 38. Postmenopausal. Currently using Hormonal Contraceptives, starting at age 34. Mother had breast cancer, age 69. Risk Values: Melita 5 year model risk: 1.5%. NCI Lifetime model risk: 19.9%. Prior Study Comparison: 07/16/2016 Bilateral Diagnostic Mammogram, [facility]. 03/02/2019 Bilateral Screening Mammogram, [facility]. 11/18/2020 Bilateral Screening Mammogram, [facility]. Tissue Density: There are scattered fibroglandular densities. Findings: Analyzed By CAD. Chronic nodularity is in the upper outer aspect left breast. No suspicious groups of microcalcifications, spiculated or lobular masses, architectural distortion or other secondary signs of malignancy are mammographically apparent. Overall Assessment: Benign, BI-RAD 2 Management: Screening Mammogram of both breasts in 1 year. A negative mammogram report should not preclude additional follow up of suspicious palpable abnormalities. Patient should continue monthly self breast exam. A clinical breast exam by your physician is recommended on an annual basis and results should be correlated with mammographic findings. Electronically signed and approved by: Eligio Schwartz D.O. Radiologis
== END | disposition home or self-care (01) ==
LOC: RADMAMWWP 08:25
PROVIDERS: ATTEND Family Medicine
DX: Z12.31 Encounter for screening mammogram for malignant neoplasm of breast (principal); Z78.0 Asymptomatic menopausal state; Z80.3 Family history of malignant neoplasm of breast
CPT/HCPCS: 77063; 77067

== ENCOUNTER → 2021-12-02 | Outpatient (CLI) | payer MEDICARE, OTHER ==
--- NOTE | 2021-12-02 09:26 | XR ---
EXAMINATION TYPE: XR elbow complete RT DATE OF EXAM: 12/02/2021 CLINICAL HISTORY: pain TECHNIQUE: Frontal, lateral and oblique images of the right elbow are obtained. COMPARISON: None. FINDINGS: There is no acute fracture/dislocation evident of the elbow. No abnormal fat pad signs ar e seen. The overlying soft tissue appears unremarkable. IMPRESSION: There is no acute fracture or dislocation of the elbow. ICD 10 NO FRACTURE, INITIAL EVALUATION
== END | disposition home or self-care (01) ==
LOC: RADXRMAIN 08:47
PROVIDERS: ATTEND Family Medicine
DX: S52.021A Displaced fracture of olecranon process without intraarticular extension of right ulna, initial encounter for closed fracture (principal)

== ENCOUNTER → 2022-04-21 | Outpatient (CLI) | payer MEDICARE, OTHER ==
--- NOTE | 2022-04-21 09:28 | USB ---
Reason for Exam: Clinical finding. Patient History: Menarche at age 9. First Full-Term at age 23. Left ovary removed at age 38. Right ovary removed at age 38. Hysterectomy at age 38. Postmenopausal. Currently using Hormonal Contraceptives, starting at age 34. Mother had breast cancer, age 69. Risk Values: Melita 5 year model risk: 1.7%. NCI Lifetime model risk: 19.7%. Technique: Method: Targeted. Prior Study Comparison: 03/02/2019 Bilateral Screening Mammogram, [facility]. 11/18/2020 Bilateral Screening Mammogram, [facility]. 12/02/2021 Bilateral MG 3D screening mammo w/cad, [facility]. Findings: The upper outer quadrant of the left breast, the area of palpable concern of the left breast and the axilla of the left breast were scanned. Targeted ultrasound upper outer quadrant left breast including the palpable axillary site.. There is a prominent but borderline sized 2.2 x 1.5 x 0.7 cm lymph node. Cortex shows mild uniform thickening at 2 mm which is within acceptable limits. This corresponds to the palpable area and is likely reactive. 3 three-month follow-up recommended. A second benign-appearing lymph node measures 1.5 x 0.7 cm with 1 mm uniform thin cortex. No other solid or cystic lesion. Overall Assessment: Probably benign, BI-RAD 3 Management: Diagnostic Breast Ultrasound of the left breast in 3 months. As a precautionary follow-up of suspected reactive palpable lymph node in the left axilla. Overall benign features. If any progressive enlargement or suspicious clinical features develop, the area can be reimaged sooner. Results were given to the patient verbally at the time of exam. Electronically signed and approved by: Adam Mcneil M.D. Radiologist
== END | disposition home or self-care (01) ==
LOC: RADUSWWP 08:57
PROVIDERS: ATTEND Obstetrics & Gynecology Obstetrics
DX: N64.4 Mastodynia (principal); Z78.0 Asymptomatic menopausal state; Z90.721 Acquired absence of ovaries, unilateral; Z80.3 Family history of malignant neoplasm of breast

== ENCOUNTER → 2022-07-10 | Outpatient (CLI) | payer MEDICARE, OTHER ==
--- NOTE | 2022-07-13 10:00 | MR ---
EXAMINATION TYPE: MR cervical spine wo/w con DATE OF EXAM: 07/10/2022 INDICATION: Patient age:Female; 42 years old; Reason for study: M54.12 RADICULOPATHY, CERVICAL REGION; Neck pain, pain down both arms to fingers. COMPARISON: Plain film radiographs 01/08/2020 TECHNIQUE: Multi planar, multi sequence imaging was performed utilizing: T1-weighted, T2-weighted, an d turbo inversion recovery imaging of the cervical spine. IV Contrast: 7 cc Gadavist FINDINGS: Alignment: The cervical vertebral bodies have preserved heights. Alignment is within normal limits gi ara patient positioning. Bones: Scattered Modic endplate changes with osteophytes and disc space narrowing. Multilevel degener ative disc disease is noted and most pronounced at the C4-C7 vertebral levels. Cord: The spinal cord is unremarkable with regards to their signal intensity and morphology. Discs: Multilevel disc desiccation is present. C2-C3: No significant disc pathology. The spinal canal is patent. No neural foraminal stenosis. C3-C4: No significant disc pathology. The spinal canal is patent. No neural foraminal stenosis. C4-C5: A disc osteophyte complex is present which minimally narrows the ventral subarachnoid space. Bilateral facet and uncovertebral joint arthropathy are present with mild right neural foraminal navdeep nosis. The left neural foramen is patent. C5-C6: Motion limits evaluation A disc osteophyte complex is present which minimally narrows the vent ral subarachnoid space. Bilateral facet and uncovertebral joint arthropathy are present with modera te right and mild to moderate left neural foraminal stenosis. C6-C7: No significant disc pathology. The spinal canal is patent. No neural foraminal stenosis. C7-T1: No significant disc pathology. The spinal canal is patent. No neural foraminal stenosis. Other: None. IMPRESSION: 1. No evidence for disc herniation or significant spinal canal stenosis. 2. Multilevel disc degeneration with associated osteoarthritic changes worse at C4-C5 and C5-C6.
== END | disposition home or self-care (01) ==
LOC: RADMRIMAIN 16:32
PROVIDERS: ATTEND Family Medicine
DX: M47.22 Other spondylosis with radiculopathy, cervical region (principal); M50.122 Cervical disc disorder at C5-C6 level with radiculopathy
CPT/HCPCS: 72156; A9585

== ENCOUNTER → 2022-09-09 | Outpatient (CLI) | payer MEDICARE, OTHER ==
--- NOTE | 2022-09-10 09:50 | MR ---
EXAMINATION TYPE: MR lumbar spine wo/w con DATE OF EXAM: 09/09/2022 11:41 AM COMPARISON: Spine radiograph 11/29/2019, MRI lumbar spine 19 2015. CLINICAL INDICATION:Female, 42 years old with history of M54.5 LOW BACK PAIN; Low back pain into bila t. Buttocks, left leg TECHNIQUE: Multi planar, multi sequence imaging was performed utilizing: T1-weighted, T2-weighted, a nd turbo inversion recovery imaging of the lumbar spine. IV Contrast: 7 cc Gadavist. None. FINDINGS: Alignment: The lumbar vertebral bodies have preserved heights and alignment. Cord: The conus medullaris and the distal spinal cord appear unremarkable with regards to their signa l intensity and morphology. Bones/Discs: Scattered mild osteophyte changes of the vertebral bodies. High T1/T2 signal L3 vertebra l body probable hemangioma No abnormal bony edema on inversion recovery sequences. Multilevel disc de generative is noted and most pronounced at the . Multilevel disc desiccation is present. T12-L1: No evidence of significant spinal canal stenosis or neural foraminal stenosis. L1-L2: No evidence of significant spinal canal stenosis or neural foraminal stenosis. L2-L3: No evidence of significant spinal canal stenosis or neural foraminal stenosis. L3-L4: Disc bulge and facet joint arthropathy without significant spinal canal stenosis and mild to m oderate bilateral neural foraminal stenosis. L4-L5: Disc bulge and facet joint arthropathy without significant spinal canal stenosis and mild bila teral neural foraminal stenosis. L5-S1: The disc is rounded posterior morphology without significant spinal canal stenosis. Facet join t arthropathy with mild neural foraminal stenosis. No significant spinal canal or neural foraminal stenosis in the remainder of the visualized levels. Other findings: Right renal high T2 signal 14 mm cyst. IMPRESSION: 1. No definitive evidence of disc herniation or significant spinal canal stenosis. No evidence for s ignificant neural foraminal stenosis. No abnormal postcontrast enhancement. 2. Mild disc degeneration with associated osteoarthritic changes. Findings may have minimally progre ssed from 2016.
== END | disposition home or self-care (01) ==
LOC: RADMRIMAIN 10:35
PROVIDERS: ATTEND Family Medicine
DX: M51.36 Other intervertebral disc degeneration, lumbar region (principal); M47.816 Spondylosis without myelopathy or radiculopathy, lumbar region
CPT/HCPCS: 72158; A9585

== ENCOUNTER → 2022-09-29 | Outpatient (CLI) | payer MEDICARE, OTHER ==
--- NOTE | 2022-09-30 08:51 | BMR ---
EXAMINATION TYPE: MR breast BILAT wo/w con DATE OF EXAM: 09/29/2022 COMPARISON: Ultrasound left breast limited April 21, 2022 BI-RADS 3. 3-D screening mammogram Augus t 2021 BI-RADS 2. HISTORY: Bereket breast lumps, left axilla lump TECHNIQUE: A series of fat and water weighted images in the long and short axis views of both breasts are obtained in conjunction with dynamic contrast MRI with subtraction technique. The patient was i njected with 7.5 mL intravenous Gadavist gadolinium contrast. Three-dimensional and additional post processing imaging is created on independent workstation and reviewed during official interpretation of this study. FINDINGS: Heterogeneously dense fibroglandular tissue bilaterally is redemonstrated. There is no sign ificant cystic change or focal fluid collection in either breast. There are benign-appearing bilatera l axillary lymph nodes that are symmetric in appearance. No abnormal axillary adenopathy clearly iden tified bilaterally. Dynamic postcontrast imaging shows mild symmetric background enhancement. There is no pathologic enhancement or enhancing masses identified in either breast. Particular attent ion is made to the left axillary area of clinical concern. Benign subcentimeter lymph nodes are prese nt. No abnormal skin thickening is seen bilaterally. The chest wall appears intact bilaterally. IMPRESSION: No MRI evidence for invasive malignancy in either breast. BI-RADS 2 benign findings right breast BI-RADS 2 benign findings left breast Recommendation: Patient due for bilateral breast mammogram in November to be back on annual schedule. P atient due for six-month follow-up diagnostic ultrasound left breast in 1 month's time. Manage palpab le left axillary clinically.
== END | disposition home or self-care (01) ==
LOC: RADMRIMAIN 09:29
PROVIDERS: ATTEND Family Medicine
DX: N63.20 Unspecified lump in the left breast, unspecified quadrant (principal)
CPT/HCPCS: C8908; A9585; 77049

== ENCOUNTER → 2022-10-05 | Outpatient (CLI) | payer MEDICARE, OTHER ==
--- NOTE | 2022-10-05 11:24 | USB ---
Reason for Exam: Follow-up at short interval from prior study. Patient History: Menarche at age 9. First Full-Term at age 23. Left ovary removed at age 38. Right ovary removed at age 38. Hysterectomy at age 38. Postmenopausal. Currently using Hormonal Contraceptives, starting at age 34. Mother had breast cancer, age 69. Risk Values: Melita 5 year model risk: 1.7%. NCI Lifetime model risk: 19.7%. Technique: Method: Targeted. Prior Study Comparison: 03/02/2019 Bilateral Screening Mammogram, [facility]. 11/18/2020 Bilateral Screening Mammogram, [facility]. 12/02/2021 Bilateral MG 3D screening mammo w/cad, [facility]. Findings: The upper outer quadrant of the left breast, the area of palpable concern of the left breast, the axilla of the left breast and the retroareolar of the left breast were scanned. Left axillary lymph nodes appear essentially unchanged relative the prior study without significant cortical thickening. Lymph nodes measure 1.7 and 1.2 cm in length unchanged from prior study. Normal fatty hilum is seen. Overall Assessment: Benign, BI-RAD 2 Management: Diagnostic Mammogram of both breasts in 2 months. A clinical breast exam by your physician is recommended on an annual basis and results should be correlated with mammographic findings. This exam should not preclude additional follow-up of suspicious palpable abnormalities. Results were given to the patient verbally at the time of exam. Electronically signed and approved by: Sha Goff M.D. Radiologis
== END | disposition home or self-care (01) ==
LOC: RADUSWWP 10:55
PROVIDERS: ATTEND Surgery
DX: R92.8 Other abnormal and inconclusive findings on diagnostic imaging of breast (principal); Z78.0 Asymptomatic menopausal state; Z80.3 Family history of malignant neoplasm of breast

== ENCOUNTER → 2022-12-03 | Outpatient (CLI) | payer MEDICARE, OTHER ==
--- NOTE | 2022-12-03 15:12 | CT ---
EXAMINATION TYPE: CT abdomen pelvis w con DATE OF EXAM: 12/03/2022 COMPARISON: 01/11/2019 INDICATION: Right lower quadrant pain DLP: 655.0 mGycm, Automated exposure control for dose reduction was used. CONTRAST: 100 mL of Isovue 300. Study performed with Oral Contrast TECHNIQUE: Axial images were obtained from above the diaphragm to the pubic rami in the axial plane a t 5 mm thick sections. Reconstructed images are reviewed on the computer in the coronal plane. FINDINGS: Limited CT sections are obtained the lung bases. The lung bases are clear. CT ABDOMEN: Liver: Normal Spleen: Normal Pancreas: Normal Adrenal glands: The adrenal glands are normal. Gallbladder: Absent Kidneys: No masses are evident. No hydronephrosis is present. Cortical renal cysts better visualize d on the delayed images in the anterior right mid kidney Delayed images were obtained through the ki dneys, which remain unremarkable. Aorta: Vascular calcification is within the aorta. Inferior vena cava: Normal. CT PELVIS: There is mild prominence of small bowel loops distended with oral contrast. Consider mild ileus. No o bstruction is evident with oral contrast extending to the hepatic flexure. There are loops of bowel w hich are incompletely distended or lack oral contrast limiting their evaluation. Appendix: Normal as visualized. No adjacent inflammatory changes or dilated appendix is evident. Urinary bladder: Normal. Genitourinary structures: Uterus and ovaries are not identified Osseous structures: No suspicious lytic or sclerotic lesions. IMPRESSIONS: 1. There may be some mild ileus without obstruction. 2. Normal appendix. 3. Right renal cortical cyst
== END | disposition home or self-care (01) ==
LOC: RADCTMAIN 12:16
PROVIDERS: ATTEND Family Medicine
DX: N28.1 Cyst of kidney, acquired (principal); R10.31 Right lower quadrant pain
CPT/HCPCS: 74177; Q9967

== ENCOUNTER → 2022-12-15 | Outpatient (CLI) | payer MEDICARE, OTHER ==
--- NOTE | 2022-12-15 09:06 | US ---
EXAMINATION TYPE: US kidneys/renal and bladder DATE OF EXAM: 12/15/2022 COMPARISON: NONE CLINICAL INDICATION: Female, 42 years old with history of N28.1 CYST OF KIDNEY, ACQUIRED; right renal cyst follow up to ct scan EXAM MEASUREMENTS: Right Kidney: 10.4 x 4.5 x 4.1 cm Left Kidney: 10.1 x 4.4 x 3.8 cm Right Kidney: hypoechoic area lower pole 1.2 x 1.2 x 1.5 cm Left Kidney: No hydronephrosis or masses seen Bladder: wnl Bilateral Jets seen: Yes There is no evidence for hydronephrosis at this point in time. No nephrolithiasis is seen. No solid masses are identified. The urinary bladder is anechoic. Bilateral ureteral jets are seen. IMPRESSION: Probable cyst lower pole kidney.
== END | disposition home or self-care (01) ==
LOC: RADUSWWP 08:26
PROVIDERS: ATTEND Family Medicine
DX: N28.1 Cyst of kidney, acquired (principal); R10.31 Right lower quadrant pain
CPT/HCPCS: 76770

== ENCOUNTER → 2023-03-12 | Outpatient (CLI) | payer MEDICARE, OTHER ==
--- NOTE | 2023-03-12 14:36 | XR ---
EXAMINATION TYPE: XR knee limited LT DATE OF EXAM: 03/12/2023 1:40 PM CLINICAL INDICATION:Female, 42 years old with history of M25.562 PAIN IN LEFT KNEE; [facility] COMPARISON: 05/21/2020 TECHNIQUE: XR knee limited LT; examined in Frontal, lateral and oblique projections. FINDINGS: No evidence of any acute osseous pathology, soft tissue swelling, or joint effusion is no pacheco. Tricompartmental osteophyte formation involving the femoral condyles, tibial plateau and patella. Mi ld joint space narrowing. IMPRESSION: 1. No acute osseous pathology. 2. Mild tricompartmental osteoarthritic changes.
== END | disposition home or self-care (01) ==
LOC: RADXRMAIN 13:24
PROVIDERS: ATTEND Family Medicine
DX: M17.12 Unilateral primary osteoarthritis, left knee (principal)

== ENCOUNTER → 2023-08-20 | Outpatient (CLI) | payer MEDICARE, OTHER ==
--- NOTE | 2023-08-26 16:09 | CT ---
EXAMINATION TYPE: CT chest wo con CT DLP: 478 mGycm, Automated exposure control for dose reduction was used. DATE OF EXAM: 08/20/2023 11:23 AM COMPARISON: No recent comparisons. CLINICAL INDICATION:Female, 43 years old with history of R07.9 Chest pain J44.9 COPD; PHH, COPD TECHNIQUE: Multiple axial images were obtained through the chest. Sagittal and coronal reformats were created for review. Contrast used: mL of (None if empty) Oral contrast used: (None if empty) FINDINGS: LUNGS/ PLEURA: The lung parenchyma appears unremarkable. AIRWAY: Patent and unremarkable. HEART: Size within normal limits. Minimal to mild calcific coronary artery atherosclerotic disease. MEDIASTINUM: No gross evidence of adenopathy. VASCULATURE: No aortic aneurysm. MUSCULOSKELETAL: No acute osseous abnormalities SOFT TISSUES/LYMPH NODES: Unremarkable. LOWER NECK: No significant findings. UPPER ABDOMEN: Cholecystectomy clips in the gallbladder fossa. No significant acute process in the up per abdomen is identified on limited imaging. IMPRESSION: No CT evidence of acute cardiopulmonary disease. Minimal to mild calcific coronary artery disease. Follow up recommendations for incidental pulmonary nodules, if there are any, are per Flejose?mary Alvarado [employer] or [employer]. [email or web address]
--- NOTE | 2023-08-26 21:23 | CT ---
EXAMINATION TYPE: CT facial bones wo con CT DLP: 649 mGycm, Automated exposure control for dose reduction was used. DATE OF EXAM: 08/20/2023 11:40 AM COMPARISON: . CLINICAL INDICATION:Female, 43 years old with history of J44.9,J32.9 CHRONIC SINUSITIS, UNSPECIFIED; PHH, sinus congestion TECHNIQUE: Multiple unenhanced axial CT images were obtained of the facial bones soft tissue and bone windows. Coronal, axial and sagittal reformatted images were also provided in soft tissue and bone windows and submitted for interpretation. Additional 3-D reformatted images were obtained on a [employer] workstation. . Contrast used: mL of , (none if empty) Oral contrast used: (none if empty) FINDINGS: There is no evidence of fracture, subluxation, dislocation, or significant soft tissue swelling. The orbital contents are unremarkable. The temporal-mandibular joints appear symmetric. Minimal mucosal thickening. The visualized portion of the paranasal sinuses appear predominantly shavon ar. IMPRESSION: Unremarkable CT of the facial bones and sinuses.
== END | disposition home or self-care (01) ==
LOC: RADCTMAIN 10:50
PROVIDERS: ATTEND Family Medicine
DX: I25.10 Atherosclerotic heart disease of native coronary artery without angina pectoris (principal); J44.9 Chronic obstructive pulmonary disease, unspecified; J32.9 Chronic sinusitis, unspecified; R07.9 Chest pain, unspecified; R09.81 Nasal congestion
CPT/HCPCS: 70486; 71250

== ENCOUNTER 2023-10-22 14:17 | Emergency (ER) | payer MEDICARE, OTHER ==
[2023-10-22 14:49] VITALS: PULSE 74; TEMP 98
[2023-10-22 16:05] LABS: Appearance,Urine Clear (Clear); Bilirubin,Urine Negative (Negative); Blood,Urine Small (Negative); Color,Urine Light Yellow; Glucose,Urine (UA) Negative (Negative); Ketones,Urine Negative (Negative); Leukocyte Esterase,Urine Negative (Negative); Mucus,Urine Few /hpf; Nitrite,Urine Negative (Negative); PH, Urine 5.5 (5.0-8.0); Protein,Urine Negative (Negative); RBC,Urine 6 /hpf (0-5); Specific Gravity,Urine 1.022 (1.001-1.035); Squamous Epithelial Cell,Urine 1 /hpf (0-4); Urobilinogen,Urine <2.0 mg/dL (<2.0); WBC,Urine 1 /hpf (0-5)
--- NOTE | 2023-10-22 16:13 | ED ---
Back Pain HPI - General Chief Complaint: Back Pain/Injury Stated Complaint: Back Pain Time Seen by Provider: 10/22/23 15:26 Source: patient, RN notes reviewed, old records reviewed Limitations: no limitations - History of Present Illness Initial Comments: This is a 43-year-old female with multiple complaints of pain. Back pain abdominal pain pelvic pain patient is CT scan was sent to ER for further evaluation regarding this pain. No travel history no sick contacts no other complaints MD Complaint: back pain, back injury, fall -: days(s) Similar Symptoms Previously: Yes Place: home Radiation: none Severity: moderate Severity scale (1-10): 4 Quality: sharp Consistency: intermittent Improves With: immobilization Worsens With: none Associated Symptoms: denies other symptoms Treatments Prior to Arrival: other (0) - Related Data Home Medications Medication Instructions Recorded Confirmed FLUoxetine HCL [PROzac] 40 mg PO DAILY 01/10/19 06/21/20 Omeprazole [PriLOSEC] 40 mg PO DAILY 10/06/19 06/21/20 Furosemide [Lasix] 20 mg PO DAILY 05/21/20 06/21/20 Phentermine HCl [Adipex-P] 37.5 mg PO DAILY 05/21/20 06/21/20 oxyCODONE-APAP 10-325MG [Percocet 1 tab PO TID 05/21/20 06/21/20 10-325 mg] Previous Rx's Medication Instructions Recorded Ibuprofen 800 mg PO Q8H #30 tab 06/21/20 Allergies Allergy/AdvReac Type Severity Reaction Status Date / Time No Known Allergies Allergy Verified 10/22/23 14:49 Review of Systems ROS Statement: Those systems with pertinent positive or pertinent negative responses have been documented in the HPI. ROS Other: All systems not noted in ROS Statement are negative. Past Medical History Past Medical History: Fibromyalgia, Rheumatoid Arthritis (RA) Additional Past Medical History / Comment(s): DDD History of Any Multi-Drug Resistant Organisms: None Reported Past Surgical History: Section, Hysterectomy, Orthopedic Surgery Additional Past Surgical History / Comment(s): BILAT KNEE SCOPES. LAPAROSCOPY FOR REMOVAL CYST OFF OVARY. LT SHOULDER SX WITH PIN Past Anesthesia/Blood Transfusion Reactions: No Reported Reaction Past Psychological History: Depression Smoking Status: Never smoker - Past Family History Mother Family Medical History: Cancer General Exam Limitations: no limitations General appearance: alert, in no apparent distress Head exam: Present: atraumatic, normocephalic, normal inspection Eye exam: Present: normal appearance, PERRL, EOMI. Absent: scleral icterus, conjunctival injection, periorbital swelling ENT exam: Present: normal exam, mucous membranes moist Neck exam: Present: normal inspection. Absent: tenderness, meningismus, lymphadenopathy Respiratory exam: Present: normal lung sounds bilaterally. Absent: respiratory distress, wheezes, rales, rhonchi, stridor Cardiovascular Exam: Present: regular rate, normal rhythm, normal heart sounds. Absent: systolic murmur, diastolic murmur, rubs, gallop, clicks GI/Abdominal exam: Present: soft, normal bowel sounds. Absent: distended, tenderness, guarding, rebound, rigid Extremities exam: Present: normal inspection, full ROM, normal capillary refill. Absent: tenderness, pedal edema, joint swelling, calf tenderness Back exam: Present: normal inspection Neurological exam: Present: alert, oriented X3, CN II-XII intact Psychiatric exam: Present: normal affect, normal mood Skin exam: Present: warm, dry, intact, normal color. Absent: rash Course Vital Signs 10/22/23 10/22/23 14:47 16:53 Temperature 98.0 F Pulse Rate 74 74 Respiratory 18 20 Rate Blood Pressure 107/76 130/86 O2 Sat by Pulse 99 98 Oximetry - Reevaluation(s) Reevaluation #1: Medical records reviewed Reevaluation #2: Labs improved Reevaluation #3: Patient informed of results questions answered Reevaluation #4: Was pt. sent in by a medical professional or institution (, PA, CLINICAL SERVICES PROFESSIONAL, urgent care, hospital, or shelter...) When possible be specific @ -no Did you speak to anyone other than the patient for history (EMS, parent, family, police, friend...)? What history was obtained from this source @ -no Did you review nursing and triage notes (agree or disagree)? Why? @ -agree Are old charts reviewed (outside hosp., previous admission, EMS record, old EKG, old radiological studies, urgent care reports/EKG's, shelter records)? Report findings @ -yes Differential Diagnosis (chest pain, altered mental status, abdominal pain women, abdominal pain men, vaginal bleeding, weakness, fever, dyspnea, syncope, headache, dizziness, GI bleed, back pain, seizure, CVA, palpatations, mental health, musculoskeletal)? @ -prior EKG interpreted by me (3pts min.). @ -yes X-rays interpreted by me (1pt min.). @ -yes negative for acute disease CT interpreted by me (1pt min.). @ -no U/S interpreted by me (1pt. min.). @ -no What testing was considered but not performed or refused? (CT, X-rays, U/S, labs)? Why? @ -none What meds were considered but not given or refused? Why? @ -none Did you discuss the management of the patient with other professionals (professionals i.e. , PA, CLINICAL SERVICES PROFESSIONAL, lab, RT, psych nurse, psychiatric social worker supervisor, obstetrics nurse practitioner, teacher, service officer, director case management)? Give summary @ -no Was smoking cessation discussed for >3mins.? @ -no Was critical care preformed (if so, how long)? @ -no Were there social determinants of health that impacted care today? How? (Homelessness, low income, unemployed, alcoholism, drug addiction, transportation, low edu. Level, literacy, decrease access to med. care, intermediate, rehab)? @ -none Was there de-escalation of care discussed even if they declined (Discuss DNR or withdrawal of care, Hospice)? DNR status @ -no What co-morbidities impacted this encounter? (DM, HTN, Smoking, COPD, CAD, Cancer, CVA, ARF, Chemo, Hep., AIDS, mental health diagnosis, sleep apnea, morbid obesity)? @ -none Was patient admitted / discharged? Hospital course, mention meds given and route, prescriptions, significant lab abnormalities, going to OR and other pertinent info. @ - Undiagnosed new problem with uncertain prognosis? @ -no Drug Therapy requiring intensive monitoring for toxicity (Heparin, Nitro, Insulin, Cardizem)? @ -no Were any procedures done? @ -no Diagnosis/symptom? @ - Acute, or Chronic, or Acute on Chronic? @ -Acute Uncomplicated (without systemic symptoms) or Complicated (systemic symptoms)? @ -Complicated Side effects of treatment? @ -no Exacerbation, Progression, or Severe Exacerbation? @ -exacerbation Poses a threat to life or bodily function? How? (Chest pain, [place], [place], pneumonia, PE, COPD, DKA, ARF, appy, cholecystitis, CVA, Diverticulitis, Homicidal, Suicidal, threat to staff... and all critical care pts) @ -yes Reevaluation #5: Differential Back Pain: Strain, zoster, cauda equina syndrome, epidural abscess, vertebral osteomyelitis, discitis, fracture, subluxation, disc herniation, DJD, spinal stenosis, dissection, AAA, pancreatitis, peptic ulcer disease, pyelonephritis, kidney stone, this is not meant to be an all-inclusive list. Medical Decision Making - Medical Decision Making 43 female with uncontrolled pain. Back pain abdominal pain pelvic pain. This is well-controlled here in the ER she can be discharged home - Lab Data Lab Results 10/22/23 10/22/23 Range/Units 15:48 15:48 Urine Color Light Yellow Urine Appearance Clear (Clear) Urine pH 5.5 (5.0-8.0) Ur Specific [place] 1.022 (1.001-1.035) Urine Protein Negative (Negative) Urine Glucose (UA) Negative (Negative) Urine Ketones Negative (Negative) Urine Blood Small H (Negative) Urine Nitrite Negative (Negative) Urine Bilirubin Negative (Negative) Urine Urobilinogen <2.0 (<2.0) mg/dL Ur Leukocyte Esterase Negative (Negative) Urine RBC 6 H (0-5) /hpf Urine WBC 1 (0-5) /hpf Ur Squamous Epith Cells 1 (0-4) /hpf Urine Mucus Few H (None) /hpf Urine HCG, Qual Not Detected (Not Detectd) Disposition Clinical Impression: Pelvic pain, Mid back pain, Abdominal pain Disposition: HOME SELF-CARE Instructions (If sedation given, give patient instructions): Abdominal Pain (ED) Is patient prescribed a controlled substance at d/c from ED?: No Referrals: None,Stated [REFERRING] - 1-2 days Time of Disposition: 16:10
[2023-10-22] MEDS: IBUPROFEN 600 MG TAB PO STA (16:48)
[2023-10-22] MEDS: traMADol 50 MG TAB PO STA (16:48)
[2023-10-22] MEDS: traMADol 50 MG STARTER PACK 3 TAB BTL PO STA (16:51)
[2023-10-22] MEDS: IBUPROFEN 600 MG STARTER PACK 4 TAB BTL PO STA (16:51)
[2023-10-22 17:01] VITALS: BP 130/86; RESP 20
== END 2023-10-22 17:00 | disposition home or self-care (01) ==
LOC: EC 14:17
DX: M54.9 Dorsalgia, unspecified (principal); R10.2 Pelvic and perineal pain
CPT/HCPCS: 81001; 81025; 99283

== ENCOUNTER → 2023-10-22 | Outpatient (CLI) | payer MEDICARE, OTHER ==
--- NOTE | 2023-10-22 12:56 | CT ---
EXAMINATION TYPE: CT abdomen pelvis wo con DATE OF EXAM: 10/22/2023 COMPARISON: HISTORY: Abdominal pain, back pain, possible renal stones stat hold and call CT DLP: 1850 mGycm Examination of the solid and hollow viscera is limited given the lack of contrast. FINDINGS: LUNG BASES: No evidence for nodule. No evidence for infiltrate. LIVER/GB: The gallbladder is unremarkable. No space-occupying hepatic lesion. PANCREAS: No pancreatic mass identified. No inflammatory process seen. SPLEEN: No evidence for splenomegaly. No intrasplenic lesions seen. ADRENALS: No adrenal nodules identified. No evidence for thickening. KIDNEYS: No evidence for renal mass. No nephrolithiasis. No hydronephrosis. BOWEL: Appendix has a normal appearance. No evidence of bowel obstruction. No inflammatory process. Lymph nodes: No evidence for adenopathy greater than 1 cm. Abdominal aorta: Atheromatous changes seen. No evidence for aneurysm. Genital organs: No significant abnormality. Other: No significant abnormality. IMPRESSION: NO ACUTE PROCESS SEEN.
== END | disposition home or self-care (01) ==
LOC: RADCTMAIN 12:09
PROVIDERS: ATTEND Family Medicine
DX: R10.84 Generalized abdominal pain (principal); M54.9 Dorsalgia, unspecified
CPT/HCPCS: 74176

== ENCOUNTER → 2023-11-11 | Outpatient (CLI) | payer MEDICARE, OTHER ==
--- NOTE | 2023-11-15 13:17 | XR ---
EXAMINATION TYPE: XR ankle complete LT DATE OF EXAM: 11/11/2023 COMPARISON: None HISTORY: Contusion TECHNIQUE: Three-view left ankle FINDINGS: Mild diffuse soft tissue swelling is not excluded. Ankle mortise as visualized appears inta ct. No acute or subacute fracture evident. Calcaneus is intact. IMPRESSION: 1. May be some mild soft tissue swelling. Clinical correlation recommended. 2. No acute or subacute osseous abnormality.
== END | disposition home or self-care (01) ==
LOC: RADXRMAIN 14:47
PROVIDERS: ATTEND Family Medicine
DX: M25.572 Pain in left ankle and joints of left foot (principal)

== ENCOUNTER → 2024-01-10 | Outpatient (CLI) | payer MEDICARE, OTHER ==
--- NOTE | 2024-01-10 16:02 | CT ---
EXAMINATION TYPE: CT abdomen pelvis wo con DATE OF EXAM: 01/10/2024 HISTORY: right flank pain CT DLP: 455.4 mGycm. Automated Exposure Control for Dose Reduction was Utilized. TECHNIQUE: CT scan of the abdomen and pelvis is performed without oral or IV contrast. COMPARISON: 10/22/2023 FINDINGS: Within the limitations of a non-contrast study, the following observations are made. There are mild interstitial changes in the left lung base. There is surgical absence of the gallbladder. There is no biliary ductal dilatation. There is no organomegaly of the liver, pancreas, spleen or adrenal glands. There are no renal calcifications or hydronephrosis. The caliber of the abdominal aorta is normal and there is no retroperitoneal adenopathy or hemorrhage . The bowel loops are normal in caliber is no evidence of obstruction. No inflammatory changes are iden tified in the mesentery and there is no free intraperitoneal air or fluid. There is no pelvic mass, free fluid, abscess or adenopathy. There is surgical absence of the uterus. The osseous structures and soft tissues are unremarkable. IMPRESSION: No acute process within the abdomen or pelvis. No renal calcifications or hydronephrosis. [facility], , 01/10/2024 4:00 PM
== END | disposition home or self-care (01) ==
LOC: RADCTMAIN 15:17
PROVIDERS: ATTEND Family Medicine
CPT/HCPCS: 74176

== ENCOUNTER 2024-01-11 13:50 | Observation (INO) | payer MEDICARE, OTHER ==
[2024-01-11 14:25] LABS: Basophils # (A) 0.1 k/uL (0-0.2); Basophils % (A) 1 %; Eosinophils # (A) 0.1 k/uL (0-0.7); Eosinophils % (A) 1 %; HCT 44.5 % (34.0-46.0); HGB 14.2 gm/dL (11.4-16.0); Lymphocytes # (A) 2.8 k/uL (1.0-4.8); Lymphocytes % (A) 30 %; MCH 27.4 pg (25.0-35.0); MCHC 31.8 g/dL (31.0-37.0); MCV 86.1 fL (80.0-100.0); Mean Platelet Volume 6.7; Monocytes # (A) 0.4 k/uL (0-1.0); Monocytes % (A) 5 %; Neutrophils % (A) 63 %; Platelet Count 328 k/uL (150-450); RBC 5.16 m/uL (3.80-5.40); RDW 12.8 % (11.5-15.5); WBC 9.5 k/uL (3.8-10.6)
[2024-01-11 14:37] LABS: Appearance,Urine Clear (Clear); Bacteria,Urine Occasional /hpf; Bilirubin,Urine Negative (Negative); Blood,Urine Moderate (Negative); Color,Urine Yellow; Glucose,Urine (UA) Negative (Negative); Ketones,Urine Negative (Negative); Leukocyte Esterase,Urine Negative (Negative); Mucus,Urine Moderate /hpf; Nitrite,Urine Negative (Negative); Protein,Urine Trace (Negative); RBC,Urine 4 /hpf (0-5); Specific Gravity,Urine 1.027 (1.001-1.035); Squamous Epithelial Cell,Urine 2 /hpf (0-4); Urobilinogen,Urine <2.0 mg/dL (<2.0); WBC,Urine 2 /hpf (0-5)
[2024-01-11] MEDS: SODIUM CHLORIDE 0.9% 1,000 ML IV STA (14:41)
[2024-01-11] MEDS: ONDANSETRON 4 MG/2 ML VIAL IVP STA (14:42)
[2024-01-11] MEDS: KETOROLAC 15 MG/ML 1 ML VIAL IVP STA (14:43)
[2024-01-11] MEDS: HYDROmorphone 1 MG/ML 1 ML SYRINGE IVP STA ×2 (14:44→15:44)
[2024-01-11 14:51] LABS: ALT 41 U/L (4-34); AST 35 U/L (14-36); African American GFR (CKD) 83 (>60 ml/min/1.73 sqM); Albumin 4.8 g/dL (3.5-5.0); Alkaline Phosphatase 88 U/L (38-126); Amylase 56 U/L (30-110); Anion Gap 12 mmol/L; Blood Urea Nitrogen 19 mg/dL (7-17); Calcium 9.9 mg/dL (8.4-10.2); Carbon Dioxide 23 mmol/L (22-30); Chloride 106 mmol/L (98-107); Glucose 126 mg/dL (74-99); Lipase 135 U/L (23-300); Non-African American GFR(CKD) 72 (>60 ml/min/1.73 sqM); Potassium 4.1 mmol/L (3.5-5.1); Sodium 141 mmol/L (137-145); Total Bilirubin 1.3 mg/dL (0.2-1.3); Total Protein 7.5 g/dL (6.3-8.2)
--- NOTE | 2024-01-11 15:06 | ED ---
Abdominal Pain HPI - General Chief Complaint: Abdominal Pain Stated Complaint: abd pain/back pain Time Seen by Provider: 01/11/24 14:00 Source: patient, RN notes reviewed Mode of arrival: ambulatory Limitations: no limitations - History of Present Illness Initial Comments: This is a 43-year-old female who presents to the emergency department for abdominal pain. Patient states that for the last couple of months she has been dealing with pain that starts in the right flank and wraps around to her abdomen and goes into the groin. She was evaluated here for this a few months ago and advised that it was likely related to a pulled muscle. However, describes these as "labor like pains" and is frustrated with being told it is a muscle. States that it feels very different. Reports associated nausea. Patient had an outpatient CT scan done yesterday, but has not yet gotten the results. MD Complaint: abdominal pain - Related Data Home Medications Medication Instructions Recorded Confirmed oxyCODONE-APAP 10-325MG [Percocet 1 tab PO TID PRN 05/21/20 01/11/24 10-325 mg] Ketorolac [Toradol] 10 mg PO TID PRN 01/11/24 01/11/24 Rosuvastatin [Crestor] 10 mg PO DAILY 01/11/24 01/11/24 Allergies Allergy/AdvReac Type Severity Reaction Status Date / Time No Known Allergies Allergy Verified 01/11/24 14:36 Review of Systems ROS Statement: Those systems with pertinent positive or pertinent negative responses have been documented in the HPI. ROS Other: All systems not noted in ROS Statement are negative. Past Medical History Past Medical History: Fibromyalgia, Rheumatoid Arthritis (RA) Additional Past Medical History / Comment(s): DDD History of Any Multi-Drug Resistant Organisms: None Reported Past Surgical History: Section, Hysterectomy, Orthopedic Surgery Additional Past Surgical History / Comment(s): BILAT KNEE SCOPES. LAPAROSCOPY FOR REMOVAL CYST OFF OVARY. LT SHOULDER SX WITH PIN Past Anesthesia/Blood Transfusion Reactions: No Reported Reaction Past Psychological History: Depression Smoking Status: Never smoker Past Alcohol Use History: None Reported Past Drug Use History: Marijuana - Past Family History Mother Family Medical History: Cancer General Exam Limitations: no limitations General appearance: alert, in no apparent distress Head exam: Present: atraumatic, normocephalic, normal inspection Respiratory exam: Present: normal lung sounds bilaterally. Absent: respiratory distress, wheezes, rales, rhonchi, stridor Cardiovascular Exam: Present: regular rate, normal rhythm, normal heart sounds. Absent: systolic murmur, diastolic murmur, rubs, gallop, clicks GI/Abdominal exam: Present: soft, tenderness (Right sided), normal bowel sounds. Absent: distended Neurological exam: Present: alert, oriented X3, CN II-XII intact Psychiatric exam: Present: normal affect, normal mood Skin exam: Present: warm, dry, intact, normal color. Absent: rash Course Vital Signs 01/11/24 01/11/24 13:53 15:00 Temperature 97.8 F Pulse Rate 88 83 Respiratory 16 18 Rate Blood Pressure 147/97 129/77 O2 Sat by Pulse 98 97 Oximetry Medical Decision Making - Medical Decision Making This is a 43 year old female who presents to the emergency department for abdominal pain. Was pt. sent in by a medical professional or institution? @ -No Did you speak to anyone other than the patient for history? @ -No Did you review nursing and triage notes? @ -Yes, and I agree, it is accurate with regards to the patient's symptoms. Were old charts reviewed? @ -CT scan of the abdomen and pelvis done yesterday demonstrating no acute process. Differential Diagnosis? @ -Differential Abdominal Pain Women: Appendicitis, Cholecystitis, diverticulosis, ischemic bowel, pancreatitis, hepatitis, UTI, gastroenteritis, AAA, incarcerated hernia, bowel obstruction, constipation, inflammatory bowel, hepatitis, peptic ulcer disease, splenic infarction, perforated viscus, vulvitis, ovarian torsion, PID, kidney stone, placenta abruption, this is not meant to be an all-inclusive list EKG interpreted by me (3pts min.)? @ -Not obtained X-rays interpreted by me (1pt min.)? @ -Not obtained CT interpreted by me (1pt min.)? @ -Not obtained U/S interpreted by me (1pt. min.)? @ -Ultrasound of the kidneys, ureters, and bladder obtained. My interpretation identifies no hydronephrosis. What testing was considered but not performed? (CT, X-rays, U/S, labs)? Why? @ -None What meds were considered but not given? Why? @ -None Did you discuss the management of the patient with other professionals? @ -Yes, Dr. Antonio, who is agreeable to observation admission and requests pain management consult Did you reconcile home meds? @ -Yes Was smoking cessation discussed for >3mins.? @ -No Was critical care preformed (if so, how long)? @ -No Were there social determinants of health that impacted care today? How? (Homelessness, low income, unemployed, alcoholism, drug addiction, transportatio n, low edu. Level, literacy, decrease access to med. care, snf, rehab)? @ -No Was there de-escalation of care discussed even if they declined? (Discuss DNR or withdrawal of care, Hospice)? @ -No What co-morbidities impacted this encounter? (DM, HTN, Smoking, COPD, CAD, Cancer, CVA, Hep., AIDS, mental health diagnosis, sleep apnea, morbid obesity)? @ -Fibromyalgia Was patient admitted / discharged? @ -Admitted. Lab work unremarkable. Urinalysis demonstrates moderate blood but no elevation in RBCs. Moderate bacteria was noted, but there were otherwise no signs of infection. Urine was sent for culture. CT scan of the abdomen and pelvis from yesterday was reviewed revealing no acute findings. We did obtain an ultrasound of the kidneys, ureters, and bladder today, which was also unremarkable. Pain was treated in the emergency department. Advised that the cause of her symptoms is not clear at this point. Patient was frustrated with the lack of answers and being unable to manage her symptoms at home. She has been told that this is potentially related to a muscular strain, which she states is not the case and describes this as being similar to "labor pains". Patient admitted to medicine for intractable pain with consult for pain management. Case discussed with ED attending, Dr. Farah. Undiagnosed new problem with uncertain prognosis? @ -None Drug Therapy requiring intensive monitoring for toxicity (Heparin, Nitro, Insulin, Cardizem)? @ -None Were any procedures done? @ -None Diagnosis/symptom? @ -Intractable pain, flank pain, abdominal pain Acute, or Chronic, or Acute on Chronic? @ -Chronic Uncomplicated (without systemic symptoms) or Complicated (systemic symptoms)? @ -Uncomplicated Side effects of treatment? @ -None Exacerbation, Progression, or Severe Exacerbation] @ -Progression Poses a threat to life or bodily function? @ -Yes, pain is limiting her ability to function. - Lab Data Result diagrams: 01/11/24 14:17 01/11/24 14:17 Lab Results 01/11/24 01/11/24 01/11/24 Range/Units 14:17 14:17 14:17 WBC 9.5 (3.8-10.6) k/uL RBC 5.16 (3.80-5.40) m/uL Hgb 14.2 (11.4-16.0) gm/dL Hct 44.5 (34.0-46.0) % MCV 86.1 (80.0-100.0) fL MCH 27.4 (25.0-35.0) pg MCHC 31.8 (31.0-37.0) g/dL RDW 12.8 (11.5-15.5) % Plt Count 328 (150-450) k/uL MPV 6.7 Neutrophils % 63 % Lymphocytes % 30 % Monocytes % 5 % Eosinophils % 1 % Basophils % 1 % Neutrophils # 6.0 (1.3-7.7) k/uL Lymphocytes # 2.8 (1.0-4.8) k/uL Monocytes # 0.4 (0-1.0) k/uL Eosinophils # 0.1 (0-0.7) k/uL Basophils # 0.1 (0-0.2) k/uL Sodium (137-145) mmol/L Potassium (3.5-5.1) mmol/L Chloride (98-107) mmol/L Carbon Dioxide (22-30) mmol/L Anion Gap mmol/L BUN (7-17) mg/dL Creatinine (0.52-1.04) mg/dL Est GFR (CKD-EPI)AfAm (>60 ml/min/1.73 sqM) Est GFR (CKD-EPI)NonAf (>60 ml/min/1.73 sqM) Glucose (74-99) mg/dL Plasma Lactic Acid [place] (0.7-2.0) mmol/L Calcium (8.4-10.2) mg/dL Total Bilirubin (0.2-1.3) mg/dL AST (14-36) U/L ALT (4-34) U/L Alkaline Phosphatase (38-126) U/L Total Protein (6.3-8.2) g/dL Albumin (3.5-5.0) g/dL Amylase (30-110) U/L Lipase (23-300) U/L Urine Color Yellow Urine Appearance Clear (Clear) Urine pH 5.0 (5.0-8.0) Ur Specific [place] 1.027 (1.001-1.035) Urine Protein Trace H (Negative) Urine Glucose (UA) Negative (Negative) Urine Ketones Negative (Negative) Urine Blood Moderate H (Negative) Urine Nitrite Negative (Negative) Urine Bilirubin Negative (Negative) Urine Urobilinogen <2.0 (<2.0) mg/dL Ur Leukocyte Esterase Negative (Negative) Urine RBC 4 (0-5) /hpf Urine WBC 2 (0-5) /hpf Ur Squamous Epith Cells 2 (0-4) /hpf Urine Bacteria Occasional H (None) /hpf Urine Mucus Moderate H (None) /hpf Urine HCG, Qual Not Detected (Not Detectd) 01/11/24 01/11/24 Range/Units 14:17 14:17 WBC (3.8-10.6) k/uL RBC (3.80-5.40) m/uL Hgb (11.4-16.0) gm/dL Hct (34.0-46.0) % MCV (80.0-100.0) fL MCH (25.0-35.0) pg MCHC (31.0-37.0) g/dL RDW (11.5-15.5) % Plt Count (150-450) k/uL MPV Neutrophils % % Lymphocytes % % Monocytes % % Eosinophils % % Basophils % % Neutrophils # (1.3-7.7) k/uL Lymphocytes # (1.0-4.8) k/uL Monocytes # (0-1.0) k/uL Eosinophils # (0-0.7) k/uL Basophils # (0-0.2) k/uL Sodium 141 (137-145) mmol/L Potassium 4.1 (3.5-5.1) mmol/L Chloride 106 (98-107) mmol/L Carbon Dioxide 23 (22-30) mmol/L Anion Gap 12 mmol/L BUN 19 H (7-17) mg/dL Creatinine 0.96 (0.52-1.04) mg/dL Est GFR (CKD-EPI)AfAm 83 (>60 ml/min/1.73 sqM) Est GFR (CKD-EPI)NonAf 72 (>60 ml/min/1.73 sqM) Glucose 126 H (74-99) mg/dL Plasma Lactic Acid [place] 1.7 (0.7-2.0) mmol/L Calcium 9.9 (8.4-10.2) mg/dL Total Bilirubin 1.3 (0.2-1.3) mg/dL AST 35 (14-36) U/L ALT 41 H (4-34) U/L Alkaline Phosphatase 88 (38-126) U/L Total Protein 7.5 (6.3-8.2) g/dL Albumin 4.8 (3.5-5.0) g/dL Amylase 56 (30-110) U/L Lipase 135 (23-300) U/L Urine Color Urine Appearance (Clear) Urine pH (5.0-8.0) Ur Specific [place] (1.001-1.035) Urine Protein (Negative) Urine Glucose (UA) (Negative) Urine Ketones (Negative) Urine Blood (Negative) Urine Nitrite (Negative) Urine Bilirubin (Negative) Urine Urobilinogen (<2.0) mg/dL Ur Leukocyte Esterase (Negative) Urine RBC (0-5) /hpf Urine WBC (0-5) /hpf Ur Squamous Epith Cells (0-4) /hpf Urine Bacteria (None) /hpf Urine Mucus (None) /hpf Urine HCG, Qual (Not Detectd) - Radiology Data Radiology results: report reviewed, image reviewed Disposition Clinical Impression: Abdominal pain, Right flank pain, Intractable pain Disposition: ADMITTED IP TO THIS [facility] Referrals: Benito Antonio MD [Primary Care Provider] - 1-2 days
--- NOTE | 2024-01-11 15:18 | US ---
EXAMINATION TYPE: US kidneys/renal and bladder DATE OF EXAM: 01/11/2024 COMPARISON: 12/15/2022 CLINICAL INDICATION: Female, 43 years old with history of Flank pain; extreme right flank pain EXAM MEASUREMENTS: Right Kidney: 9.6 x 4.0 x 4.6 cm Left Kidney: 10.1 x 4.9 x 5.3 cm Right Kidney: No hydronephrosis or masses seen. The 1.2 cm mid medullary renal cyst is less well-vis ualized but present. This appears stable. Left Kidney: No hydronephrosis or masses seen. Bladder: wnl IMPRESSION: 1. Unremarkable renal ultrasound. 2. Stable mid right renal cyst [facility], , 01/11/2024 3:16 PM
[2024-01-11] MEDS ORDERED: NALOXONE 0.4 MG/ML 1 ML VIAL IV PRN (16:55)
[2024-01-11] MEDS ORDERED: ACETAMINOPHEN TAB 325 MG TAB PO PRN (16:55)
[2024-01-11] MEDS ORDERED: IBUPROFEN 400 MG TAB PO PRN (16:55)
[2024-01-11] MEDS ORDERED: NON FORMULARY DRUG (Ketorolac 10 MG Tab) PO PRN (16:56)
[2024-01-11] MEDS ORDERED: oxyCODONE-APAP 10-325MG 1 EACH TAB PO PRN (16:56)
[2024-01-11] MEDS: HYDROmorphone 1 MG/ML 1 ML SYRINGE IVP PRN (21:54)
[2024-01-12] MEDS: HYDROmorphone 0.5 MG/0.5 ML SYRINGE IVP PRN (01:46)
[2024-01-12] MEDS: ONDANSETRON 4 MG/2 ML VIAL IVP PRN (03:13)
[2024-01-12] MEDS: PANTOPRAZOLE 40 MG/10 ML VIAL IV SCH (08:32)
[2024-01-12] MEDS: ATORVASTATIN 20 MG TAB PO SCH (08:33)
--- NOTE | 2024-01-12 10:35 | P.GSHP ---
History of Present Illness H&P Date: 01/12/24 43 yo female admitted to the hospital with right sided back pain. We were asked to see her for this reason and hematuria. She has had this pain for several weeks and has been told that the pain is musculoskeletal in origin. SHe had a ct scan of the abdomen and pelvis 01/10/24 that didnt show any signs of stones, masses or othere urological problems. She had a renal us yesterday that didnt identify any abnormality othere than a benign 11 mm right renal cyst. There were 4 rbc / hpf noted.she has had a headache and the last 24 hours. She has been vomiting the last 24 hours. She has had intermittent gross hematuria ever since she is a child however. There is a family history of stones. - Constitutional Constitutional: Denies chills, Denies fever - EENT Eyes: denies blurred vision, denies pain Ears, nose, mouth and throat: Denies headache, Denies sore throat - Cardiovascular Cardiovascular: Denies chest pain, Denies shortness of breath - Respiratory Respiratory: Denies cough, Denies 7 - Gastrointestinal Gastrointestinal: Denies abdominal pain, Denies diarrhea, Denies nausea, Denies vomiting - Genitourinary (Female) Genitourinary: Denies dysuria, Denies hematuria - Genitourinary (Male) Genitourinary: Denies dysuria, Denies hematuria - Musculoskeletal Musculoskeletal: Denies myalgias - Integumentary Integumentary: Denies pruritus, Denies rash - Neurological Neurological: Denies numbness, Denies weakness - Psychiatric Psychiatric: Denies anxiety, Denies depression - Endocrine Endocrine: Denies fatigue, Denies weight change Past Medical History Past Medical History: Fibromyalgia, Rheumatoid Arthritis (RA) Additional Past Medical History / Comment(s): DDD History of Any Multi-Drug Resistant Organisms: None Reported Past Surgical History: Section, Hysterectomy, Orthopedic Surgery Additional Past Surgical History / Comment(s): BILAT KNEE SCOPES. LAPAROSCOPY FOR REMOVAL CYST OFF OVARY. LT SHOULDER SX WITH PIN Past Anesthesia/Blood Transfusion Reactions: No Reported Reaction Past Psychological History: Depression Smoking Status: Never smoker Past Alcohol Use History: None Reported Past Drug Use History: Marijuana - Past Family History Mother Family Medical History: Cancer Medications and Allergies Home Medications Medication Instructions Recorded Confirmed Type oxyCODONE-APAP 10-325MG [Percocet 1 tab PO TID PRN 05/21/20 01/11/24 History 10-325 mg] Ketorolac [Toradol] 10 mg PO TID PRN 01/11/24 01/11/24 History Rosuvastatin [Crestor] 10 mg PO DAILY 01/11/24 01/11/24 History Allergies Allergy/AdvReac Type Severity Reaction Status Date / Time No Known Allergies Allergy Verified 01/11/24 14:36 Surgical - Exam Vital Signs Temp Pulse Resp BP Pulse Ox 97.8 F 88 16 147/97 98 01/11/24 13:53 01/11/24 13:53 01/11/24 13:53 01/11/24 13:53 01/11/24 13:53 - General moderate distress - Eyes PERRL - ENT no hearing loss - Neck no masses - Respiratory normal expansion - Cardiovascular Rhythm: regular - Abdomen nausea vomiting Abdomen: tender - Neurologic normal coordination - Musculoskeletal normal gait - Psychiatric oriented to person, oriented to place, speech is normal, memory intact Results - Labs 01/11/24 14:17 01/11/24 14:17 Abnormal Lab Results - Last 24 Hours (Table) 01/11/24 01/11/24 Range/Units 14:17 14:17 BUN 19 H (7-17) mg/dL Glucose 126 H (74-99) mg/dL ALT 41 H (4-34) U/L Urine Protein Trace H (Negative) Urine Blood Moderate H (Negative) Urine Bacteria Occasional H (None) /hpf Urine Mucus Moderate H (None) /hpf Diabetes panel 01/11/24 Range/Units 14:17 Sodium 141 (137-145) mmol/L Potassium 4.1 (3.5-5.1) mmol/L Chloride 106 (98-107) mmol/L Carbon Dioxide 23 (22-30) mmol/L BUN 19 H (7-17) mg/dL Creatinine 0.96 (0.52-1.04) mg/dL Glucose 126 H (74-99) mg/dL Calcium 9.9 (8.4-10.2) mg/dL AST 35 (14-36) U/L ALT 41 H (4-34) U/L Alkaline Phosphatase 88 (38-126) U/L Total Protein 7.5 (6.3-8.2) g/dL Albumin 4.8 (3.5-5.0) g/dL Calcium panel 01/11/24 Range/Units 14:17 Calcium 9.9 (8.4-10.2) mg/dL Albumin 4.8 (3.5-5.0) g/dL Pituitary panel 01/11/24 Range/Units 14:17 Sodium 141 (137-145) mmol/L Potassium 4.1 (3.5-5.1) mmol/L Chloride 106 (98-107) mmol/L Carbon Dioxide 23 (22-30) mmol/L BUN 19 H (7-17) mg/dL Creatinine 0.96 (0.52-1.04) mg/dL Glucose 126 H (74-99) mg/dL Calcium 9.9 (8.4-10.2) mg/dL Adrenal panel 01/11/24 Range/Units 14:17 Sodium 141 (137-145) mmol/L Potassium 4.1 (3.5-5.1) mmol/L Chloride 106 (98-107) mmol/L Carbon Dioxide 23 (22-30) mmol/L BUN 19 H (7-17) mg/dL Creatinine 0.96 (0.52-1.04) mg/dL Glucose 126 H (74-99) mg/dL Calcium 9.9 (8.4-10.2) mg/dL Total Bilirubin 1.3 (0.2-1.3) mg/dL AST 35 (14-36) U/L ALT 41 H (4-34) U/L Alkaline Phosphatase 88 (38-126) U/L Total Protein 7.5 (6.3-8.2) g/dL Albumin 4.8 (3.5-5.0) g/dL - Imaging CT scan - abdomen: report reviewed, image reviewed CT scan - pelvis: report reviewed, image reviewed US - kidney/bladder: report reviewed, image reviewed Assessment and Plan Assessment: Impression: right flank pain, non urologic. Minimal micro hematuria, chronic Recommendations: This patient ax as if she has a kidney stone however I am unable to see one on the CAT scan which is a very reliable test a. There is no evidence of hydronephrosis. Hematuria is chronic so that unfortunately does not clarify her status . We will continue to follow with you.
--- NOTE | 2024-01-12 14:10 | P.PAINCN ---
History of Present Illness - Chief Complaint Back pain. Right groin pain. - History of Present Illness 43-year-old pleasant lady who has been admitted to hospital with low back pain mostly on the right side going down to right groin area. Patient relates this pain has been going on for about 3 to 4 weeks and gradually getting worse. Patient had similar episode of pain more than 2 months ago which went away. This pain located lumbar area mostly on the right side going across right flank into the right groin. Pain is continuous in nature, sharp in character intensity goes up to 10/10, with medication 5/10. Bending of the lumbar spine and activities makes her pain worse. Laying down on sides usually decreases the pains significantly. Patient denies any loss of sensation or strength in the lower extremities. Denies any bowel bladder dysfunction. Patient was evaluated by urology who discounted any urologic cause of pain. Patient had a MRI of lumbar spine done on August 2022. Did not show any significant lesion other than mild degenerative disc disease. This pain started since that MRI. Past Medical History Past Medical History: Fibromyalgia, Rheumatoid Arthritis (RA) Additional Past Medical History / Comment(s): DDD, cholecystectomy History of Any Multi-Drug Resistant Organisms: None Reported Past Surgical History: Section, Hysterectomy, Orthopedic Surgery Additional Past Surgical History / Comment(s): BILAT KNEE SCOPES. LAPAROSCOPY FOR REMOVAL CYST OFF OVARY. LT SHOULDER SX WITH PIN Past Anesthesia/Blood Transfusion Reactions: No Reported Reaction Past Psychological History: Depression Smoking Status: Never smoker Past Alcohol Use History: None Reported Past Drug Use History: Marijuana - Past Family History Mother Family Medical History: Cancer Medications and Allergies Home Medications Medication Instructions Recorded Confirmed Type oxyCODONE-APAP 10-325MG [Percocet 1 tab PO TID PRN 05/21/20 01/11/24 History 10-325 mg] Ketorolac [Toradol] 10 mg PO TID PRN 01/11/24 01/11/24 History Rosuvastatin [Crestor] 10 mg PO DAILY 01/11/24 01/11/24 History Allergies Allergy/AdvReac Type Severity Reaction Status Date / Time No Known Allergies Allergy Verified 01/11/24 14:36 Physical Exam Vitals: Vital Signs Temp Pulse Pulse Resp BP BP BP 01/12/24 12:15 97.9 F 66 16 145/81 09/18/24 12:06 98 F 89 16 108/79 01/12/24 08:31 98.8 F 68 16 108/65 01/12/24 01:41 97.6 F 69 14 112/75 01/11/24 20:00 98.3 F 70 18 114/73 01/11/24 18:00 82 18 115/79 01/11/24 15:00 83 18 129/77 Pulse Ox 01/12/24 12:15 99 01/12/24 12:06 98 01/12/24 08:31 99 01/12/24 01:41 100 01/11/24 20:00 100 01/11/24 18:00 97 01/11/24 15:00 97 Intake and Output 01/11/24 01/12/24 01/12/24 22:59 06:59 14:59 Intake Total 450 600 Output Total 150 Balance 450 450 Intake: Oral 450 600 Blood Product 0 Output: Emesis 150 Other: # Voids 2 2 Weight 81.647 kg - Neurologic Lower extremity motor strength of toes ankles knees and hips flexion extension 5/5. Deep tendon reflexes of knee and ankle 2+. Lower extremities touch sensation intact bilaterally. - Musculoskeletal Lumbar spine flexion extension, rotation within normal limit. Lumbar flexion causes increased pain. Significant tenderness over lumbar paraspinal muscles mostly on the right side. Significant tenderness over palpation over bilateral sacroiliac joints mostly on the right side. Results CBC & Chem 7: 01/11/24 14:17 01/11/24 14:17 Labs: Abnormal Lab Results - Last 24 Hours (Table) 01/11/24 01/11/24 Range/Units 14:17 14:17 BUN 19 H (7-17) mg/dL Glucose 126 H (74-99) mg/dL ALT 41 H (4-34) U/L Urine Protein Trace H (Negative) Urine Blood Moderate H (Negative) Urine Bacteria Occasional H (None) /hpf Urine Mucus Moderate H (None) /hpf Assessment and Plan Assessment: 1. Low back pain. Lumbar radiculopathy. 2. Bilateral sacroiliac joint arthropathy. Right worse than left. Plan: 1. Will get MRI of lumbar spine without contrast. Patient may need a lumbar epidural steroid injection depending upon the result of the MRI. 2. Will consider doing sacroiliac joint injection also. 3. Hold off any more NSAIDs and/or blood thinners. Keep n.p.o. from tomorrow morning. PQRS Measure Charge Sheet - Pain Location Right Lower Back Non-Pharmacological Interventions: Position/Reposition Pharmacological Interventions: PRN Medication Pain Comment: Patient stated she recently recieved pain medication from prior shift and that the pain subsides with the medication. When the medication wears off then she said the pain is really bad again. RN educated on notifying staff when patient starts to feel pain again and medication can be given. PQRS Narrative: Smoking Status Never smoker Blood Pressure [Right Arm] 145/81 Blood Pressure [Left Arm] 112/75 Blood Pressure 108/79 Pain Intensity [Right Lower 4 Back] Pain Intensity 0 Pain Scale Used Numeric (1 - 10) Scale Used Numeric (1 - 10) Home Medications: Ambulatory Orders oxyCODONE-APAP 10-325MG [Percocet 10-325 mg] 1 tab PO TID PRN 05/21/20 Ketorolac [Toradol] 10 mg PO TID PRN 01/11/24 Rosuvastatin [Crestor] 10 mg PO DAILY 01/11/24
[2024-01-12] MEDS: KETOROLAC 15 MG/ML 1 ML VIAL IVP PRN (14:16)
[2024-01-12 15:59] LABS: INR 0.9 (<1.2); Prothrombin Time 10.4 sec (10.0-12.5)
[2024-01-12] MEDS: methylPREDNISolone SOD SUCCI 125 MG/2 ML VIAL IV SCH (17:41)
--- NOTE | 2024-01-12 18:31 | MR ---
EXAMINATION TYPE: MR lumbar spine wo con DATE OF EXAM: 01/12/2024 COMPARISON: 09/09/2022 HISTORY: low back pain CONTRAST: 0 mL intravenous Gadavist. TECHNIQUE: Multiplanar, multisequence images of the lumbar spine were acquired. FINDINGS: Disc hydration appear homogenous through the lumbar spine. Vertebral body heights are pres erved. Body signal appears normal. No focal disc herniations or significant disc bulges. Cord terminates at the level. L5-S1: No significant disc bulge or disc herniation. No spinal canal stenosis. No foraminal stenosi s. L4-L5: No significant disc bulge or disc herniation. No spinal canal stenosis. No foraminal stenosi s. L3-L4: No significant disc bulge or disc herniation. No spinal canal stenosis. No foraminal stenosi s. L2-L3: No significant disc bulge or disc herniation. No spinal canal stenosis. No foraminal stenosi s. L1-L2: No significant disc bulge or disc herniation. No spinal canal stenosis. No foraminal stenosi s. T12-L1: No significant disc bulge or disc herniation. No spinal canal stenosis. No foraminal stenos is. There may be a small hemangioma within the anterior S1 vertebral body. Findings are stable in appeara nce. IMPRESSION: 1. No suspicious acute changes to account for back pain. [facility], , 01/12/2024 6:28 PM
--- NOTE | 2024-01-13 01:40 | HP ---
HISTORY AND PHYSICAL The patient came in to the hospital with severe right flank pain, possible pyelonephritis. Ultrasound of abdomen and pelvis was negative. She has had a small amount of red cells. No signs of infection in the urine. She had some emesis prior to admission. I suspect her acute on chronic abdominal pain is coming from severe herniated disc in the lower thoracic spine radiating around her abdomen to her right flank. HOME MEDICINES: Reviewed and reordered. ALLERGIES: Reviewed. FAMILY HISTORY: Reviewed. PHYSICAL EXAMINATION: VITAL SIGNS: Temperature is 97.8, pulse 65, respiratory rate 16 to 18, blood pressure 118/81, 97 on room air. GI: Soft, nontender. Normal bowel sounds. No signs of bowel infection. Nontender. No guarding. MUSCULOSKELETAL: She has severe tenderness in the lumbar thoracic spine, you can track right around her right flank where she has severe pain starting from the spine directly over to the right flank. Suspect she has acute herniated lumbar disc. It is worse when she lifts her right leg. CARDIOVASCULAR: S1, S2. LUNGS: Clear. PSYCH: Fair mood and affect. NEUROLOGIC: Alert and oriented X3. HEMATOLOGY: Negative Homans. ASSESSMENT: 1. Acute thoracic lumbar neuritis, for which an MRI is ordered in the morning and an epidural will be given, then she will be able to go home. Continue pain control. 2. Send urine culture, but I do not believe she has a urinary tract infection. 3. Wait for MRI and injection in her lumbar thoracic spine and treatment for disc herniation and she can possibly go home and may give Solu-Medrol overnight. Prognosis guarded. MMODL / IJN: [id number] /
[2024-01-13 07:50] VITALS: BP 125/81; PULSE 91; RESP 15; TEMP 98
--- NOTE | 2024-01-13 11:06 | P.PN ---
Progress Note - Text Patient's MRI of lumbosacral spine did not show any significant change. Considering MRI report there is no indication for epidural steroid injection at this time. Considering patient's significant tenderness and pain over the right sacroiliac joint, sacroiliac joint injection with local anesthetic and steroids may be an option. Since pain has gotten better, patient at this time is reluctant to have any injections.
== END 2024-01-13 14:35 | disposition home or self-care (01) ==
LOC: EC 13:50 → 6NMEDSUR 17:29
PROVIDERS: ADMIT Family Medicine; ATTEND Family Medicine
DX: M54.16 Radiculopathy, lumbar region (principal); M54.14 Radiculopathy, thoracic region; M46.1 Sacroiliitis, not elsewhere classified; R10.9 Unspecified abdominal pain; R31.29 Other microscopic hematuria; F32.A Depression, unspecified; Z79.899 Other long term (current) drug therapy
CPT/HCPCS: 36415; 72148; 76770; 80053; 81001; 81025; 82150; 83605; 83690; 85025; 85610; 87086; 96361; 96374; 96375; 96376; 99285

== ENCOUNTER 2024-11-14 06:24 | Day surgery (SDC) | payer MEDICARE, OTHER ==
[~2024-11-14 06:24] MED LIST changes: -DEXAMETHASONE SOD PHOSPHATE 4 MG/ML 1 ML VIAL IV ONE; -EPINEPHrine (PF) 1 ML in SODIUM CHLORIDE 0.9% IRRIGATIO 3,000 ML IRRIGATION ONE; -FAMOTIDINE 20 MG/2 ML VIAL IV ONE; -HYDROmorphone 0.5 MG/0.5 ML SYRINGE IVP ONE; -HYDROmorphone 0.5 MG/0.5 ML SYRINGE IVP PRN; -KETOROLAC 15 MG/ML 1 ML VIAL ONE; -LACTATED RINGERS 1,000 ML IV SCH; -LIDOCAINE 1% (10MG/ML) FOR IV START INTRADERMA ONE; +LIDOCAINE 1% (10MG/ML) FOR IV START INTRADERMA PRN; -LIDOCAINE 1% INJ 10MG/ML (20 ML MDV) ONE; -MIDAZOLAM 2 MG/2 ML VIAL ONE; -ONDANSETRON 4 MG/2 ML VIAL IVP ONE; -PROPOFOL 10 MG/ML 20 ML VIAL IV ONE; -fentaNYL (PF) 50 MCG/ML 2 ML AMP ONE
[2024-11-14 07:01] VITALS: TEMP 98.2
[2024-11-14] MEDS: IV FLUID CONTINUATION 1,000 ML IV ONE (07:06)
[2024-11-14] MEDS: ONDANSETRON 4 MG/2 ML VIAL IVP STA (07:10)
[2024-11-14] MEDS: LACTATED RINGERS 1,000 ML IV SCH (07:11)
[2024-11-14] MEDS ORDERED: LIDOCAINE 2% (PF) 20 MG/ML 5 ML VIAL ONE (07:19)
[2024-11-14] MEDS ORDERED: PROPOFOL 10 MG/ML 20 ML VIAL IV ONE (07:19)
--- NOTE | 2024-11-14 07:47 | P.PCN ---
Date of Procedure: 11/14/24 Procedure(s) Performed: Brief history: Patient is a pleasant 44-year-old white female scheduled for an elective upper endoscopy as well as colonoscopy as a part of evaluation of intermittent nausea vomiting, GERD and change in bowel habits with chronic intermittent diarrhea for the last 8 years duration. Procedure performed: Esophagogastroduodenoscopy with biopsy Colonoscopy with biopsy Preoperative diagnosis: Intermittent episodes of nausea vomiting of 8 years duration Chronic diarrhea Anesthesia: [facility] [place] Procedure: After informed consent was obtained from the patient was brought into the endoscopy unit and IV sedation was administered by anesthesia under continuous monitoring. Initially upper endoscopy was done. The Olympus GF 160 video endoscope was inserted inserted into the mouth and esophagus intubated without any difficulty and was gradually advanced into the stomach and duodenum and carefully examined. The bulb and second part of the duodenum appeared normal. Biopsies were done from the duodenum to rule out celiac disease. The scope was then withdrawn into the stomach adequately insufflated with air and upon careful examination the antrum had mild gastritis and biopsies were done from this area. Mucosa body, cardia and fundus appeared normal. The scope was then withdrawn into the esophagus. The GE junction was located at 40 cm to the incisors. It appeared regular with no erythema erosions or ulcerations. Rest of the esophagus appeared normal. Biopsies were done from the distal esophagus. Patient tolerated the procedure well. At this time the patient continued to remain sedation. Initial digital rectal examination was normal. Olympus CF 160 video colonoscope was then inserted into the rectum and gradually advanced to the cecum without any difficulty. Careful examination was performed as the scope was gradually being withdrawn. The prep was excellent. Terminal ileum was intubated 20 cm visualized appeared normal. The cecum, ascending colon, transverse colon, descending colon, sigmoid colon and rectum appeared normal. Random biopsies were done from the ascending and descending colon to rule out microscopic/collagenous colitis. Retroflexion was performed in the rectum and no lesions were noted. Patient tolerated the procedure well. Impression: 1. Upper endoscopy revealed mild antral gastritis 2. Colonoscopy was within normal limits with no evidence of colorectal neoplasia Recommendations: Findings of this examination were discussed with the patient as well as her family. She was advised to follow the biopsy results. She will be seen in the office in 2 weeks. Recommended repeat screening colonoscopy in 10 years.
[2024-11-14 08:26] VITALS: BP 119/71; PULSE 67; RESP 18
== END 2024-11-14 08:59 | disposition home or self-care (01) ==
LOC: ORWHC2ENDO 06:24
PROVIDERS: ATTEND Internal Medicine Gastroenterology
DX: K29.50 Unspecified chronic gastritis without bleeding (principal); B96.81 Helicobacter pylori [H. pylori] as the cause of diseases classified elsewhere; K21.00 Gastro-esophageal reflux disease with esophagitis, without bleeding; K52.9 Noninfective gastroenteritis and colitis, unspecified
CPT/HCPCS: 88305; 88342; 45380; 43239; J2405; J2704; J2003